=== PATIENT | female | born 1940 | race Hispanic/Latino ===

== ENCOUNTER 2016-09-24 15:38 | Inpatient (IN) | payer MEDICARE ==
--- NOTE | 2016-09-24 15:54 | Emergency Department Report ---
Chief Complaint: Extremity Injury, Lower Stated Complaint: RT FOOT PAIN Time Seen by Provider: 09/24/16 15:48 - HPI History of Present Illness: 76-year-old female presents emergency department via EMS for evaluation of right foot pain and swelling. Patient states that she had a mechanical fall 3 days ago. She states her right foot was caught either on her chair or her walker and she fell backwards onto the floor hitting her head. There was no loss of consciousness. Patient was seen that night at [facility]. She states she underwent CT of the head and x-rays of her foot which were reportedly negative. She has been taking Tylenol No. 3 for pain, and states this is helping her pain. Patient's daughter wanted her to come to the emergency room today because of persistent and worsening swelling of the right foot. - Exam Vital Signs: Vital Signs 09/24/16 15:42 Temperature 97.1 F L Pulse Rate 92 H Respiratory 16 Rate Blood Pressure 123/73 O2 Sat by Pulse 99 Oximetry Physical Exam: Right foot: mild edema. Ecchymosis noted over the base of the toes on the dorsal aspect of the foot. Tenderness to palpation over the dorsum of the foot. Intact neurovascularly. MSE screening note: Focused history and physical exam performed. Due to findings the following was ordered: CBC, PT/INR, PTT, R foot x-ray ED Disposition for MSE Condition: Stable
--- NOTE | 2016-09-24 16:49 | XRay Report ---
Right foot 3 views. History: Trauma with pain. Findings: There are nondisplaced fractures of the proximal shafts of the third and fourth metatarsals with no evidence of associated dislocation. An old fracture deformity is seen involving the distal shaft of the fourth metatarsal. Bony mineralization is normal for age. Impression: Fractures of the proximal third and fourth metatarsal bones.
[2016-09-24 17:16] LABS: Hematocrit 44.2 % (30.3-42.9); Hemoglobin 14.3 gm/dl (10.1-14.3); Mean Corpuscular HGB Conc 32 % (30-34); Mean Corpuscular Hemoglobin 30 pg (28-32); Mean Corpuscular Volume 92 fl (79-97); Platelet Count 186 K/mm3 (140-440); Red Blood Count 4.81 M/mm3 (3.65-5.03); Red Cell Distribution Width 15.3 % (13.2-15.2); White Blood Count 14.9 K/mm3 (4.5-11.0)
[2016-09-24 17:47] LABS: INR 1.29 (0.87-1.13)
[2016-09-24 17:48] LABS: Partial Thromboplastin Time 29.5 Sec. (24.2-36.6)
[2016-09-24 18:21] LABS: Basophils % (Manual) 0 % (0.0-1.8); Blastocytes % (Manual) 0 %
[2016-09-24 18:22] LABS: Diff Status Complete; Eosinophils % (Manual) 0 % (0.0-4.3); Poikilocytosis Few
[2016-09-24] MEDS ORDERED: NORCO 5/325 ONE (18:50)
[2016-09-24] MEDS ORDERED: NORCO 5/325 PO ONE (18:58)
[2016-09-24] MEDS ORDERED: ATROVENT IH ONE (20:08)
[2016-09-24] MEDS ORDERED: PROVENTIL IH ONE (20:08)
--- NOTE | 2016-09-24 20:09 | Emergency Department Report ---
ED General Adult HPI - General Chief complaint: Extremity Injury, Lower Stated complaint: RT FOOT PAIN Time Seen by Provider: 09/24/16 15:48 Source: patient, EMS (ems notes not available at time of chart dictation), RN notes reviewed Mode of arrival: Stretcher Limitations: Physical Limitation - History of Present Illness Initial comments: This is a 76-year-old female. She is previously unknown to me. Primary care Dr.: Dr. Brijesh Qureshi. Cardiology: Dr. Little Pulmonary: Dr. Alejo Past medical history: CHF, diabetes, COPD, hypertension (not on home oxygen, does not recall ejection fraction.) The patient is accompanied by family. The patient presents to the ER after mechanical fall over the weekend. Patient reports that she fell and hit her head, and broke the toes in her right lower extremity. She reports that since the fall, she's been having pain in her foot , difficulty walking. Family reports that the patient typically requires assistance with activities of daily living, and has required increased assistance. The patient complains of a mixture of pain and weakness in her lower extremity, just precluding her from participating in her activities of daily living. She also complains of generalized weakness, and shortness of breath. There is no chest pain. There is no saddle anesthesia. There is no urinary or fecal incontinence. There is no urinary retention. Symptoms are constant. They worsen with physical exertion. It decreased with rest. -: Gradual Location: right, lower extremity Severity scale (0 -10): 8 Quality: aching Consistency: constant Improves with: rest Worsens with: movement Associated Symptoms: cough, loss of appetite, nausea/vomiting, shortness of breath, weakness - Related Data Home Medications Medication Instructions Recorded Confirmed Last Taken Clopidogrel Bisulfate [Plavix] 75 mg PO DAILY 09/24/16 09/24/16 Unknown Allergies Allergy/AdvReac Type Severity Reaction Status Date / Time amoxicillin trihydrate Allergy Unknown Verified 09/24/16 15:42 [From Augmentin] meperidine HCl [From Demerol] Allergy Unknown Verified 09/24/16 15:42 potassium clavulanate Allergy Unknown Verified 09/24/16 15:42 [From Augmentin] Sulfa (Sulfonamide Allergy Unknown Verified 09/24/16 15:42 Antibiotics) ED Review of Systems ROS: Stated complaint: RT FOOT PAIN Other details as noted in HPI Constitutional: malaise, weakness Eyes: denies: vision change ENT: denies: epistaxis Respiratory: shortness of breath Cardiovascular: dyspnea on exertion Gastrointestinal: denies: nausea Genitourinary: as per HPI Musculoskeletal: arthralgia, myalgia Skin: denies: lesions Neurological: weakness Psychiatric: anxiety ED Past Medical Hx - Past Medical History Previous Medical History?: Yes Hx Hypertension: Yes Hx Congestive Heart Failure: Yes Hx COPD: Yes Additional medical history: sleep apnea - Surgical History Past Surgical History?: No - Social History Smoking Status: Never Smoker Substance Use Type: None - Medications Home Medications: Home Medications Medication Instructions Recorded Confirmed Last Taken Type Clopidogrel Bisulfate [Plavix] 75 mg PO DAILY 09/24/16 09/24/16 Unknown History ED Physical Exam - General Limitations: Physical Limitation General appearance: alert, in no apparent distress - Head Head exam: Present: atraumatic, normocephalic - Eye Eye exam: Present: normal appearance, EOMI. Absent: nystagmus - ENT ENT exam: Present: normal exam, normal orophraynx, mucous membranes moist, normal external ear exam - Neck Neck exam: Present: normal inspection, full ROM. Absent: tenderness, meningismus - Respiratory Respiratory exam: Present: respiratory distress, wheezes, rales, rhonchi - Cardiovascular Cardiovascular Exam: Present: regular rate, normal rhythm, normal heart sounds. Absent: bradycardia, tachycardia, irregular rhythm, systolic murmur, diastolic murmur, rubs, gallop - GI/Abdominal GI/Abdominal exam: Present: soft, normal bowel sounds. Absent: distended, tenderness, guarding, rebound, rigid, pulsatile mass - Extremities Exam Extremities exam: Present: normal inspection, full ROM, tenderness (there is tenderness to the dorsal aspect of the right foot. The pelvis is stable. There is no long bony tenderness. Patient is able to turn herself around, and strength is intact in the bilateral hip flexors and extensors, bilateral knee extensors and flexors, and bilateral dorsi and plantar flexion.), normal capillary refill. Absent: pedal edema, joint swelling, calf tenderness - Back Exam Back exam: Present: normal inspection, full ROM, paraspinal tenderness - Neurological Exam Neurological exam: Present: alert, oriented X3, other (Extraocular movements intact. Tongue midline. No facial droop. Facial sensation intact to light touch in the V1, V2, V3 distribution bilaterally. 5 and 5 strength in 4 extremities.. Sensation is intact to light touch in 4 extremities.). Absent: normal gait (patient unable to walk secondary to foot pain), motor sensory deficit (sensation is intact to light touch, pinprick and proprioception in 4 extremities) - Psychiatric Psychiatric exam: Present: anxious - Skin Skin exam: Present: warm, dry, intact, normal color. Absent: rash ED Course Vital Signs 09/24/16 09/24/16 09/24/16 15:42 18:05 18:06 Temperature 97.1 F L Pulse Rate 92 H 72 72 Pulse Rate [ Anterior Bilateral Throughout] Respiratory 16 16 17 Rate Respiratory Rate [Anterior Bilateral Throughout] Blood Pressure 123/73 120/66 Blood Pressure [Right] O2 Sat by Pulse 99 91 90 Oximetry 09/24/16 09/24/16 09/24/16 19:00 19:42 19:44 Temperature Pulse Rate 69 75 Pulse Rate [ Anterior Bilateral Throughout] Respiratory 17 16 13 Rate Respiratory Rate [Anterior Bilateral Throughout] Blood Pressure 141/72 141/72 Blood Pressure [Right] O2 Sat by Pulse 96 98 98 Oximetry 09/24/16 09/24/16 09/24/16 19:46 19:48 19:50 Temperature Pulse Rate 71 69 68 Pulse Rate [ Anterior Bilateral Throughout] Respiratory 22 14 14 Rate Respiratory Rate [Anterior Bilateral Throughout] Blood Pressure 141/72 141/72 141/72 Blood Pressure [Right] O2 Sat by Pulse 98 99 99 Oximetry 09/24/16 09/24/16 09/24/16 19:52 19:54 19:56 Temperature Pulse Rate 68 76 81 Pulse Rate [ Anterior Bilateral Throughout] Respiratory 16 12 16 Rate Respiratory Rate [Anterior Bilateral Throughout] Blood Pressure 141/72 141/72 141/72 Blood Pressure [Right] O2 Sat by Pulse 100 95 96 Oximetry 09/24/16 09/24/16 09/24/16 19:58 20:00 20:02 Temperature Pulse Rate Pulse Rate [ Anterior Bilateral Throughout] Respiratory Rate Respiratory Rate [Anterior Bilateral Throughout] Blood Pressure 141/72 141/72 141/72 Blood Pressure [Right] O2 Sat by Pulse 94 90 95 Oximetry 09/24/16 09/24/16 09/24/16 20:04 20:06 20:08 Temperature Pulse Rate Pulse Rate [ Anterior Bilateral Throughout] Respiratory Rate Respiratory Rate [Anterior Bilateral Throughout] Blood Pressure 141/72 141/72 141/72 Blood Pressure [Right] O2 Sat by Pulse 90 91 89 Oximetry 09/24/16 09/24/16 09/24/16 20:10 20:11 20:12 Temperature Pulse Rate 73 76 Pulse Rate [ Anterior Bilateral Throughout] Respiratory 18 24 Rate Respiratory Rate [Anterior Bilateral Throughout] Blood Pressure 141/72 131/82 131/82 Blood Pressure [Right] O2 Sat by Pulse 95 94 93 Oximetry 09/24/16 09/24/16 09/24/16 20:14 20:16 20:18 Temperature Pulse Rate 74 77 76 Pulse Rate [ Anterior Bilateral Throughout] Respiratory 18 18 19 Rate Respiratory Rate [Anterior Bilateral Throughout] Blood Pressure 131/82 131/82 131/82 Blood Pressure [Right] O2 Sat by Pulse 91 92 94 Oximetry 09/24/16 09/24/16 09/24/16 20:20 20:22 20:24 Temperature Pulse Rate 73 75 80 Pulse Rate [ Anterior Bilateral Throughout] Respiratory 22 14 15 Rate Respiratory Rate [Anterior Bilateral Throughout] Blood Pressure 131/82 131/82 131/82 Blood Pressure [Right] O2 Sat by Pulse 92 87 94 Oximetry 09/24/16 09/24/16 09/24/16 20:26 20:28 20:30 Temperature Pulse Rate 74 69 76 Pulse Rate [ Anterior Bilateral Throughout] Respiratory 17 16 14 Rate Respiratory Rate [Anterior Bilateral Throughout] Blood Pressure 131/82 131/82 131/82 Blood Pressure [Right] O2 Sat by Pulse 92 94 91 Oximetry 09/24/16 09/24/16 09/24/16 20:32 20:34 20:36 Temperature Pulse Rate 71 72 77 Pulse Rate [ Anterior Bilateral Throughout] Respiratory 12 15 20 Rate Respiratory Rate [Anterior Bilateral Throughout] Blood Pressure 131/82 131/82 131/82 Blood Pressure [Right] O2 Sat by Pulse 91 91 87 Oximetry 09/24/16 09/24/16 09/24/16 20:38 20:40 20:42 Temperature Pulse Rate 78 77 75 Pulse Rate [ Anterior Bilateral Throughout] Respiratory 12 13 14 Rate Respiratory Rate [Anterior Bilateral Throughout] Blood Pressure 131/82 131/82 131/82 Blood Pressure [Right] O2 Sat by Pulse 91 91 90 Oximetry 09/24/16 09/24/16 09/24/16 20:44 20:45 20:46 Temperature Pulse Rate 69 77 Pulse Rate [ 77 Anterior Bilateral Throughout] Respiratory 21 15 Rate Respiratory 15 Rate [Anterior Bilateral Throughout] Blood Pressure 131/82 131/82 Blood Pressure [Right] O2 Sat by Pulse 90 100 Oximetry 09/24/16 09/24/16 09/24/16 20:48 20:50 20:52 Temperature Pulse Rate 74 76 74 Pulse Rate [ Anterior Bilateral Throughout] Respiratory 20 21 19 Rate Respiratory Rate [Anterior Bilateral Throughout] Blood Pressure 131/82 131/82 131/82 Blood Pressure [Right] O2 Sat by Pulse 100 98 99 Oximetry 09/24/16 09/24/16 09/24/16 20:54 20:56 20:58 Temperature Pulse Rate 75 71 72 Pulse Rate [ 84 Anterior Bilateral Throughout] Respiratory 19 17 16 Rate Respiratory 16 Rate [Anterior Bilateral Throughout] Blood Pressure 131/82 131/82 131/82 Blood Pressure [Right] O2 Sat by Pulse 100 100 100 Oximetry 09/24/16 09/24/16 09/24/16 21:00 21:02 21:04 Temperature Pulse Rate 74 74 74 Pulse Rate [ Anterior Bilateral Throughout] Respiratory 20 13 15 Rate Respiratory Rate [Anterior Bilateral Throughout] Blood Pressure 134/70 134/70 134/70 Blood Pressure [Right] O2 Sat by Pulse 99 99 100 Oximetry 09/24/16 09/24/16 09/24/16 21:06 21:08 21:10 Temperature Pulse Rate 77 82 81 Pulse Rate [ Anterior Bilateral Throughout] Respiratory 22 22 19 Rate Respiratory Rate [Anterior Bilateral Throughout] Blood Pressure 134/70 134/70 134/70 Blood Pressure [Right] O2 Sat by Pulse 99 100 99 Oximetry 09/24/16 09/24/16 09/24/16 21:12 21:14 21:16 Temperature Pulse Rate 76 81 74 Pulse Rate [ Anterior Bilateral Throughout] Respiratory 21 23 24 Rate Respiratory Rate [Anterior Bilateral Throughout] Blood Pressure 134/70 134/70 134/70 Blood Pressure [Right] O2 Sat by Pulse 99 100 99 Oximetry 09/24/16 09/24/16 09/24/16 21:18 21:21 23:42 Temperature 99.4 F Pulse Rate 80 74 Pulse Rate [ Anterior Bilateral Throughout] Respiratory 17 15 Rate Respiratory Rate [Anterior Bilateral Throughout] Blood Pressure 134/70 108/68 Blood Pressure [Right] O2 Sat by Pulse 100 97 Oximetry 09/24/16 09/24/16 09/24/16 23:44 23:46 23:48 Temperature Pulse Rate 75 86 81 Pulse Rate [ Anterior Bilateral Throughout] Respiratory 10 L 12 10 L Rate Respiratory Rate [Anterior Bilateral Throughout] Blood Pressure 108/68 108/68 108/68 Blood Pressure [Right] O2 Sat by Pulse 96 91 96 Oximetry 09/24/16 09/24/16 09/24/16 23:50 23:52 23:54 Temperature Pulse Rate 87 80 73 Pulse Rate [ Anterior Bilateral Throughout] Respiratory 10 L 11 L 14 Rate Respiratory Rate [Anterior Bilateral Throughout] Blood Pressure 108/68 108/68 108/68 Blood Pressure [Right] O2 Sat by Pulse 98 95 98 Oximetry 09/24/16 09/24/16 09/25/16 23:56 23:58 00:00 Temperature Pulse Rate 77 78 74 Pulse Rate [ Anterior Bilateral Throughout] Respiratory 15 22 15 Rate Respiratory Rate [Anterior Bilateral Throughout] Blood Pressure 108/68 108/68 108/68 Blood Pressure [Right] O2 Sat by Pulse 97 99 98 Oximetry 09/25/16 09/25/16 09/25/16 00:01 00:02 00:04 Temperature Pulse Rate 79 80 74 Pulse Rate [ Anterior Bilateral Throughout] Respiratory 15 17 17 Rate Respiratory Rate [Anterior Bilateral Throughout] Blood Pressure 95/71 95/71 95/71 Blood Pressure [Right] O2 Sat by Pulse 99 100 98 Oximetry 09/25/16 09/25/16 09/25/16 00:06 00:08 00:10 Temperature Pulse Rate 79 83 75 Pulse Rate [ Anterior Bilateral Throughout] Respiratory 18 17 12 Rate Respiratory Rate [Anterior Bilateral Throughout] Blood Pressure 95/71 95/71 95/71 Blood Pressure [Right] O2 Sat by Pulse 99 97 96 Oximetry 09/25/16 09/25/16 09/25/16 00:12 00:14 00:16 Temperature Pulse Rate 76 70 75 Pulse Rate [ Anterior Bilateral Throughout] Respiratory 15 15 16 Rate Respiratory Rate [Anterior Bilateral Throughout] Blood Pressure 95/71 95/71 95/71 Blood Pressure [Right] O2 Sat by Pulse 95 94 96 Oximetry 09/25/16 09/25/16 09/25/16 00:18 00:20 00:22 Temperature Pulse Rate 70 82 71 Pulse Rate [ Anterior Bilateral Throughout] Respiratory 15 14 19 Rate Respiratory Rate [Anterior Bilateral Throughout] Blood Pressure 95/71 95/71 95/71 Blood Pressure [Right] O2 Sat by Pulse 97 94 97 Oximetry 09/25/16 09/25/16 09/25/16 00:24 00:26 00:28 Temperature Pulse Rate 75 74 74 Pulse Rate [ Anterior Bilateral Throughout] Respiratory 16 12 17 Rate Respiratory Rate [Anterior Bilateral Throughout] Blood Pressure 95/71 95/71 95/71 Blood Pressure [Right] O2 Sat by Pulse 92 97 96 Oximetry 09/25/16 09/25/16 09/25/16 00:30 00:32 00:34 Temperature Pulse Rate 78 73 79 Pulse Rate [ Anterior Bilateral Throughout] Respiratory 13 19 18 Rate Respiratory Rate [Anterior Bilateral Throughout] Blood Pressure 95/71 95/71 95/71 Blood Pressure [Right] O2 Sat by Pulse 96 97 99 Oximetry 09/25/16 09/25/16 09/25/16 00:36 00:38 00:40 Temperature Pulse Rate 71 68 79 Pulse Rate [ Anterior Bilateral Throughout] Respiratory 16 18 13 Rate Respiratory Rate [Anterior Bilateral Throughout] Blood Pressure 95/71 95/71 95/71 Blood Pressure [Right] O2 Sat by Pulse 98 96 96 Oximetry 09/25/16 09/25/16 09/25/16 00:42 00:44 00:46 Temperature Pulse Rate 74 70 73 Pulse Rate [ Anterior Bilateral Throughout] Respiratory 15 13 12 Rate Respiratory Rate [Anterior Bilateral Throughout] Blood Pressure 95/71 95/71 95/71 Blood Pressure [Right] O2 Sat by Pulse 98 97 97 Oximetry 09/25/16 09/25/16 09/25/16 00:48 00:50 00:52 Temperature Pulse Rate 76 76 74 Pulse Rate [ Anterior Bilateral Throughout] Respiratory 16 15 17 Rate Respiratory Rate [Anterior Bilateral Throughout] Blood Pressure 95/71 95/71 95/71 Blood Pressure [Right] O2 Sat by Pulse 97 97 96 Oximetry 09/25/16 09/25/16 09/25/16 00:54 00:56 00:58 Temperature Pulse Rate 64 79 74 Pulse Rate [ Anterior Bilateral Throughout] Respiratory 16 16 17 Rate Respiratory Rate [Anterior Bilateral Throughout] Blood Pressure 95/71 95/71 95/71 Blood Pressure [Right] O2 Sat by Pulse 96 96 96 Oximetry 09/25/16 09/25/16 09/25/16 01:00 01:02 01:04 Temperature Pulse Rate 76 80 70 Pulse Rate [ Anterior Bilateral Throughout] Respiratory 12 15 17 Rate Respiratory Rate [Anterior Bilateral Throughout] Blood Pressure 112/73 112/73 112/73 Blood Pressure [Right] O2 Sat by Pulse 97 98 97 Oximetry 09/25/16 09/25/16 09/25/16 01:06 01:08 01:10 Temperature Pulse Rate 80 81 73 Pulse Rate [ Anterior Bilateral Throughout] Respiratory 14 16 16 Rate Respiratory Rate [Anterior Bilateral Throughout] Blood Pressure 112/73 112/73 112/73 Blood Pressure [Right] O2 Sat by Pulse 97 96 Oximetry 09/25/16 09/25/16 09/25/16 01:12 01:14 01:16 Temperature Pulse Rate 81 75 79 Pulse Rate [ Anterior Bilateral Throughout] Respiratory 17 13 15 Rate Respiratory Rate [Anterior Bilateral Throughout] Blood Pressure 112/73 112/73 112/73 Blood Pressure [Right] O2 Sat by Pulse 96 97 97 Oximetry 09/25/16 09/25/16 09/25/16 01:18 01:20 01:22 Temperature Pulse Rate 71 79 76 Pulse Rate [ Anterior Bilateral Throughout] Respiratory 15 13 17 Rate Respiratory Rate [Anterior Bilateral Throughout] Blood Pressure 112/73 112/73 112/73 Blood Pressure [Right] O2 Sat by Pulse 96 97 97 Oximetry 09/25/16 09/25/16 09/25/16 01:24 01:26 01:28 Temperature Pulse Rate 78 70 74 Pulse Rate [ Anterior Bilateral Throughout] Respiratory 15 18 20 Rate Respiratory Rate [Anterior Bilateral Throughout] Blood Pressure 112/73 112/73 112/73 Blood Pressure [Right] O2 Sat by Pulse 95 95 97 Oximetry 09/25/16 09/25/16 09/25/16 01:30 01:32 01:34 Temperature Pulse Rate 71 81 81 Pulse Rate [ Anterior Bilateral Throughout] Respiratory 18 18 16 Rate Respiratory Rate [Anterior Bilateral Throughout] Blood Pressure 112/73 112/73 112/73 Blood Pressure [Right] O2 Sat by Pulse 96 96 95 Oximetry 09/25/16 09/25/16 09/25/16 01:36 01:38 01:40 Temperature Pulse Rate 75 69 75 Pulse Rate [ Anterior Bilateral Throughout] Respiratory 17 20 16 Rate Respiratory Rate [Anterior Bilateral Throughout] Blood Pressure 112/73 112/73 112/73 Blood Pressure [Right] O2 Sat by Pulse 96 96 96 Oximetry 09/25/16 09/25/16 09/25/16 01:42 01:44 01:46 Temperature Pulse Rate 77 72 Pulse Rate [ Anterior Bilateral Throughout] Respiratory 22 17 Rate Respiratory Rate [Anterior Bilateral Throughout] Blood Pressure 112/73 112/73 112/73 Blood Pressure [Right] O2 Sat by Pulse 96 97 96 Oximetry 09/25/16 09/25/16 09/25/16 01:48 01:50 01:52 Temperature Pulse Rate Pulse Rate [ Anterior Bilateral Throughout] Respiratory Rate Respiratory Rate [Anterior Bilateral Throughout] Blood Pressure 112/73 112/73 112/73 Blood Pressure [Right] O2 Sat by Pulse 95 96 96 Oximetry 09/25/16 09/25/16 09/25/16 01:54 01:56 01:58 Temperature Pulse Rate Pulse Rate [ Anterior Bilateral Throughout] Respiratory Rate Respiratory Rate [Anterior Bilateral Throughout] Blood Pressure 112/73 112/73 112/73 Blood Pressure [Right] O2 Sat by Pulse 95 95 94 Oximetry 09/25/16 09/25/16 09/25/16 02:00 02:38 02:40 Temperature Pulse Rate 70 77 71 Pulse Rate [ Anterior Bilateral Throughout] Respiratory 21 15 22 Rate Respiratory Rate [Anterior Bilateral Throughout] Blood Pressure 117/73 117/73 117/73 Blood Pressure [Right] O2 Sat by Pulse 95 97 96 Oximetry 09/25/16 09/25/16 09/25/16 02:42 02:44 02:46 Temperature Pulse Rate 75 68 78 Pulse Rate [ Anterior Bilateral Throughout] Respiratory 16 12 14 Rate Respiratory Rate [Anterior Bilateral Throughout] Blood Pressure 117/73 117/73 117/73 Blood Pressure [Right] O2 Sat by Pulse 97 97 97 Oximetry 09/25/16 09/25/16 09/25/16 02:48 02:50 02:52 Temperature Pulse Rate 76 76 73 Pulse Rate [ Anterior Bilateral Throughout] Respiratory 16 19 14 Rate Respiratory Rate [Anterior Bilateral Throughout] Blood Pressure 117/73 117/73 117/73 Blood Pressure [Right] O2 Sat by Pulse 98 97 98 Oximetry 09/25/16 09/25/16 09/25/16 02:54 02:56 02:58 Temperature Pulse Rate 71 77 73 Pulse Rate [ Anterior Bilateral Throughout] Respiratory 15 16 14 Rate Respiratory Rate [Anterior Bilateral Throughout] Blood Pressure 117/73 117/73 117/73 Blood Pressure [Right] O2 Sat by Pulse 97 97 97 Oximetry 09/25/16 09/25/16 09/25/16 03:00 03:01 03:02 Temperature Pulse Rate 73 76 77 Pulse Rate [ Anterior Bilateral Throughout] Respiratory 12 16 14 Rate Respiratory Rate [Anterior Bilateral Throughout] Blood Pressure 117/73 116/72 116/72 Blood Pressure [Right] O2 Sat by Pulse 97 95 97 Oximetry 09/25/16 09/25/16 09/25/16 03:04 03:06 03:08 Temperature Pulse Rate 67 64 72 Pulse Rate [ Anterior Bilateral Throughout] Respiratory 15 15 15 Rate Respiratory Rate [Anterior Bilateral Throughout] Blood Pressure 116/72 116/72 116/72 Blood Pressure [Right] O2 Sat by Pulse 96 96 97 Oximetry 09/25/16 09/25/16 09/25/16 03:10 03:12 03:14 Temperature Pulse Rate 69 79 75 Pulse Rate [ Anterior Bilateral Throughout] Respiratory 17 16 21 Rate Respiratory Rate [Anterior Bilateral Throughout] Blood Pressure 116/72 116/72 116/72 Blood Pressure [Right] O2 Sat by Pulse 97 97 97 Oximetry 09/25/16 09/25/16 09/25/16 03:16 03:18 03:20 Temperature Pulse Rate 72 80 73 Pulse Rate [ Anterior Bilateral Throughout] Respiratory 15 15 17 Rate Respiratory Rate [Anterior Bilateral Throughout] Blood Pressure 116/72 116/72 116/72 Blood Pressure [Right] O2 Sat by Pulse 97 97 97 Oximetry 09/25/16 09/25/16 09/25/16 03:22 03:24 03:26 Temperature Pulse Rate 75 73 76 Pulse Rate [ Anterior Bilateral Throughout] Respiratory 15 17 18 Rate Respiratory Rate [Anterior Bilateral Throughout] Blood Pressure 116/72 116/72 116/72 Blood Pressure [Right] O2 Sat by Pulse 97 97 96 Oximetry 09/25/16 09/25/16 09/25/16 03:28 03:30 03:32 Temperature Pulse Rate 77 76 79 Pulse Rate [ Anterior Bilateral Throughout] Respiratory 19 18 16 Rate Respiratory Rate [Anterior Bilateral Throughout] Blood Pressure 116/72 116/72 116/72 Blood Pressure [Right] O2 Sat by Pulse 96 97 97 Oximetry 09/25/16 09/25/16 09/25/16 03:34 03:36 03:38 Temperature Pulse Rate 68 73 73 Pulse Rate [ Anterior Bilateral Throughout] Respiratory 16 18 17 Rate Respiratory Rate [Anterior Bilateral Throughout] Blood Pressure 116/72 116/72 116/72 Blood Pressure [Right] O2 Sat by Pulse 97 96 97 Oximetry 09/25/16 09/25/16 09/25/16 03:40 03:42 03:44 Temperature Pulse Rate 75 74 75 Pulse Rate [ Anterior Bilateral Throughout] Respiratory 16 15 15 Rate Respiratory Rate [Anterior Bilateral Throughout] Blood Pressure 116/72 116/72 116/72 Blood Pressure [Right] O2 Sat by Pulse 97 97 97 Oximetry 09/25/16 09/25/16 09/25/16 03:46 03:48 03:50 Temperature Pulse Rate 74 71 69 Pulse Rate [ Anterior Bilateral Throughout] Respiratory 13 16 12 Rate Respiratory Rate [Anterior Bilateral Throughout] Blood Pressure 116/72 116/72 116/72 Blood Pressure [Right] O2 Sat by Pulse 97 97 97 Oximetry 09/25/16 09/25/16 09/25/16 03:52 03:54 03:56 Temperature Pulse Rate 72 66 77 Pulse Rate [ Anterior Bilateral Throughout] Respiratory 15 14 16 Rate Respiratory Rate [Anterior Bilateral Throughout] Blood Pressure 116/72 116/72 116/72 Blood Pressure [Right] O2 Sat by Pulse 97 96 98 Oximetry 09/25/16 09/25/16 09/25/16 03:58 04:00 04:02 Temperature Pulse Rate 77 72 69 Pulse Rate [ Anterior Bilateral Throughout] Respiratory 13 18 15 Rate Respiratory Rate [Anterior Bilateral Throughout] Blood Pressure 116/72 123/71 123/71 Blood Pressure [Right] O2 Sat by Pulse 97 96 96 Oximetry 09/25/16 09/25/16 09/25/16 04:04 04:06 04:08 Temperature Pulse Rate 69 80 75 Pulse Rate [ Anterior Bilateral Throughout] Respiratory 14 15 14 Rate Respiratory Rate [Anterior Bilateral Throughout] Blood Pressure 123/71 123/71 123/71 Blood Pressure [Right] O2 Sat by Pulse 98 97 98 Oximetry 09/25/16 09/25/16 09/25/16 04:10 04:12 04:14 Temperature Pulse Rate 68 72 79 Pulse Rate [ Anterior Bilateral Throughout] Respiratory 16 13 8 L Rate Respiratory Rate [Anterior Bilateral Throughout] Blood Pressure 123/71 123/71 123/71 Blood Pressure [Right] O2 Sat by Pulse 98 97 97 Oximetry 09/25/16 04:21 Temperature Pulse Rate 79 Pulse Rate [ Anterior Bilateral Throughout] Respiratory 12 Rate Respiratory Rate [Anterior Bilateral Throughout] Blood Pressure Blood Pressure 123/71 [Right] O2 Sat by Pulse 97 Oximetry - Reevaluation(s) Reevaluation #1: 09/24/16 21:15 . Differential diagnosis: Subacute foot fracture, debility, deconditioning, COPD exacerbation, CHF exacerbation, multifactorial shortness of breath, pneumonia, debilitating Assessment and plan: 76-year-old female status post mechanical fall over the weekend, with debility, decreased ability to perform her activities of daily living. She complains of shortness of breath, is found to be hypoxic on room air, and an arterial blood gas on room air done a straight hypoxemic respiratory failure. She will be given albuterol, Atrovent, steroids and magnesium. A CT scan of the brain, cervical spine and lumbar spine are pending. Plain films of the pelvis were negative for fracture and dislocation. Plain films of the foot confirmed known tarsal fractures. Patient has appropriate distal strength, sensation, proprioception, therefore I think epidural compression syndrome is unlikely. She will require admission once her laboratory studies and diagnostics have returned. Reevaluation #2: 09/24/16 21:19 The patient's right foot x-ray demonstrates nondisplaced fractures of the third and fourth metatarsals, this is a nonoperative lesion, and can be treated with nonweightbearing status, and a hard sole shoe. Reevaluation #3: 09/24/16 23:29 CT scans are reviewed and appreciated. Congestive heart failure is suggested on the CT scan. Lasix was ordered. The CT scan of the lumbar spine demonstrates a possible disc protrusion on the left side. Clinically, the patient's symptoms on the right side, and her physical examination history did not corroborates cord compression. Inpatient team can follow this up. Case is discussed with the Hospital physician, Dr. Hager, who accepts the patient to his service. ED Medical Decision Making - Lab Data Result diagrams: 09/24/16 16:52 09/24/16 21:28 Vital Signs 09/24/16 09/24/16 09/24/16 15:42 18:05 18:06 Temperature 97.1 F L Pulse Rate 92 H 72 72 Respiratory 16 16 17 Rate Blood Pressure 123/73 120/66 O2 Sat by Pulse 99 91 90 Oximetry 09/24/16 19:00 Temperature Pulse Rate Respiratory 17 Rate Blood Pressure O2 Sat by Pulse 96 Oximetry Lab Results 09/24/16 09/24/16 09/24/16 Range/Units 16:52 16:52 20:18 WBC 14.9 H (4.5-11.0) K/mm3 RBC 4.81 (3.65-5.03) M/mm3 Hgb 14.3 (10.1-14.3) gm/dl Hct 44.2 H (30.3-42.9) % MCV 92 (79-97) fl MCH 30 (28-32) pg MCHC 32 (30-34) % RDW 15.3 H (13.2-15.2) % Plt Count 186 (140-440) K/mm3 [place] % (Auto) Mortar Mixer Add Manual Diff Complete Total Counted 100 Seg Neuts % (Manual) 73.0 H (40.0-70.0) % Band Neutrophils % 0 % Lymphocytes % (Manual) 14.0 (13.4-35.0) % Reactive Lymphs % (Man) 0 % Monocytes % (Manual) 13.0 H (0.0-7.3) % Eosinophils % (Manual) 0 (0.0-4.3) % Basophils % (Manual) 0 (0.0-1.8) % Metamyelocytes % 0 % Myelocytes % 0 % Promyelocytes % 0 % Blast Cells % 0 % Nucleated RBC % Not Reportable Seg Neutrophils # Man 10.9 H (1.8-7.7) K/mm3 Band Neutrophils # 0.0 K/mm3 Lymphocytes # (Manual) 2.1 (1.2-5.4) K/mm3 Abs React Lymphs (Man) 0.0 K/mm3 Monocytes # (Manual) 1.9 H (0.0-0.8) K/mm3 Eosinophils # (Manual) 0.0 (0.0-0.4) K/mm3 Basophils # (Manual) 0.0 (0.0-0.1) K/mm3 Metamyelocytes # 0.0 K/mm3 Myelocytes # 0.0 K/mm3 Promyelocytes # 0.0 K/mm3 Blast Cells # 0.0 K/mm3 WBC Morphology Not Reportable Hypersegmented Neuts Not Reportable Hyposegmented Neuts Not Reportable Hypogranular Neuts Not Reportable Smudge Cells Not Reportable Toxic Granulation Not Reportable Toxic Vacuolation Not Reportable Dohle Bodies Not Reportable Pelger-Huet Anomaly Not Reportable Loi Rods Not Reportable Platelet Estimate Appears normal Clumped Platelets Not Reportable Plt Clumps, EDTA Not Reportable Large Platelets Not Reportable Giant Platelets Not Reportable Platelet Satelliting Not Reportable Plt Morphology Comment Not Reportable RBC Morphology Not Reportable Dimorphic RBCs Not Reportable Polychromasia Not Reportable Hypochromasia Not Reportable Poikilocytosis Few Anisocytosis Not Reportable Microcytosis Not Reportable Macrocytosis Not Reportable Spherocytes Not Reportable Pappenheimer Bodies Not Reportable Sickle Cells Not Reportable Target Cells Not Reportable Tear Drop Cells Not Reportable Ovalocytes Not Reportable Helmet Cells Not Reportable Lindsay-Wilson[place] Bodies Not Reportable [place] Rings Not Reportable [place] Cells Not Reportable Bite Cells Not Reportable Crenated Cell Not Reportable Elliptocytes Not Reportable Acanthocytes (Spur) Not Reportable Rouleaux Not Reportable Hemoglobin C Crystals Not Reportable Schistocytes Not Reportable Malaria parasites Not Reportable Malik Bodies Not Reportable Hem Pathologist Commnt No PT 16.0 H (12.2-14.9) Sec. INR 1.29 H (0.87-1.13) APTT 29.5 (24.2-36.6) Sec. POC ABG pH (7.35-7.45) POC ABG pCO2 (35-45) POC ABG pO2 (80-105) POC ABG HCO3 POC ABG Total CO2 POC ABG O2 Sat POC ABG Base Excess FiO2 % POC Glucose 84 (70-105) 09/24/16 Range/Units 20:42 WBC (4.5-11.0) K/mm3 RBC (3.65-5.03) M/mm3 Hgb (10.1-14.3) gm/dl Hct (30.3-42.9) % MCV (79-97) fl MCH (28-32) pg MCHC (30-34) % RDW (13.2-15.2) % Plt Count (140-440) K/mm3 [place] % (Auto) Add Manual Diff Total Counted Seg Neuts % (Manual) (40.0-70.0) % Band Neutrophils % % Lymphocytes % (Manual) (13.4-35.0) % Reactive Lymphs % (Man) % Monocytes % (Manual) (0.0-7.3) % Eosinophils % (Manual) (0.0-4.3) % Basophils % (Manual) (0.0-1.8) % Metamyelocytes % % Myelocytes % % Promyelocytes % % Blast Cells % % Nucleated RBC % Seg Neutrophils # Man (1.8-7.7) K/mm3 Band Neutrophils # K/mm3 Lymphocytes # (Manual) (1.2-5.4) K/mm3 Abs React Lymphs (Man) K/mm3 Monocytes # (Manual) (0.0-0.8) K/mm3 Eosinophils # (Manual) (0.0-0.4) K/mm3 Basophils # (Manual) (0.0-0.1) K/mm3 Metamyelocytes # K/mm3 Myelocytes # K/mm3 Promyelocytes # K/mm3 Blast Cells # K/mm3 WBC Morphology Hypersegmented Neuts Hyposegmented Neuts Hypogranular Neuts Smudge Cells Toxic Granulation Toxic Vacuolation Dohle Bodies Pelger-Huet Anomaly Loi Rods Platelet Estimate Clumped Platelets Plt Clumps, EDTA Large Platelets Giant Platelets Platelet Satelliting Plt Morphology Comment RBC Morphology Dimorphic RBCs Polychromasia Hypochromasia Poikilocytosis Anisocytosis Microcytosis Macrocytosis Spherocytes Pappenheimer Bodies Sickle Cells Target Cells Tear Drop Cells Ovalocytes Helmet Cells Lindsay-Wilson[place] Bodies [place] Rings [place] Cells Bite Cells Crenated Cell Elliptocytes Acanthocytes (Spur) Rouleaux Hemoglobin C Crystals Schistocytes Malaria parasites Malik Bodies Hem Pathologist Commnt PT (12.2-14.9) Sec. INR (0.87-1.13) APTT (24.2-36.6) Sec. POC ABG pH 7.387 (7.35-7.45) POC ABG pCO2 40.3 (35-45) POC ABG pO2 53 L (80-105) POC ABG HCO3 24.2 POC ABG Total CO2 25 POC ABG O2 Sat 87 POC ABG Base Excess -1 FiO2 21 % POC Glucose (70-105) - EKG Data When compared to previous EKG there are: previous EKG unavailable 09/24/16 21:16 , 75 bpm, borderline left axis deviation, atrial flutter, not morphologically consistent with STEMI, abnormal EKG. - Radiology Data Radiology results: report reviewed, image reviewed interpreted by me: X-ray of the foot demonstrates nondisplaced fractures of the third and fourth tarsal bones. Pelvis x-ray demonstrates DJD, no acute disease. X-ray of the chest is rotated, status post sternotomy, pulmonary vascular congestion, elevated right hemidiaphragm, possible small right lower lobe effusion. Noncontrast CT scan of the brain is negative for acute disease. CT scan of the cervical spine is negative for acute disease. CT scan of the chest suggest congestive heart failure. CT scan of the lumbar spine x-rays no fracture or dislocation. Nonspecific disc abnormality noted in the left side. Critical care attestation.: If time is entered above; I have spent that time in minutes in the direct care of this critically ill patient, excluding procedure time. ED Disposition Clinical Impression: Acute hypoxemic respiratory failure, Foot fracture, right, Debility Disposition: OP ADMITTED IP TO THIS HOSP Is pt being admited?: Yes Condition: Stable Referrals: PRIMARY CARE, [Primary Care Provider] - 3-5 Days
[2016-09-24 20:55] LABS: ISTAT Base Excess -1; ISTAT DEVICE 0; ISTAT HCO3 24.2; ISTAT PCO2 40.3 (35-45); ISTAT PH 7.387 (7.35-7.45); ISTAT PO2 53 (80-105); ISTAT SO2 87; ISTAT TCO2 25
--- NOTE | 2016-09-24 21:30 | XRay Report ---
FINAL REPORT PROCEDURE: XR CHEST 1V AP TECHNIQUE: Chest radiograph anteroposterior view. CPT 22596 HISTORY: dyspnea COMPARISON: No prior studies are available for comparison. FINDINGS: Patient is rotated to the right. There is cardiomegaly without pulmonary venous congestion. Postoperative changes are seen. No pneumothorax or pleural effusion is seen. Opacities at the lung bases are probably hypoventilatory changes but pneumonia is not excluded. IMPRESSION: Cardiomegaly is suspected without CHF. Probable hypoventilatory changes are seen at the lung bases but pneumonia is not excluded. Follow-up PA and lateral views of the chest may be useful if symptoms do not improve.
[2016-09-24 21:37] LABS: Bacteria,Urine 1+ /HPF (Negative); Bilirubin,Urine NEG (Negative); Blood,Urine NEG (Negative); Ketones,Urine NEG (Negative); Leukocyte Esterase,Urine NEG (Negative); Mucus,Urine FEW /HPF; Nitrite,Urine NEG (Negative); Protein,Urine <15 mg/dL mg/dL (Negative); Urobilinogen,Urine < 2.0 mg/dL (<2.0)
[2016-09-24 22:07] LABS: BUN/Creatinine Ratio 27.27; Calcium 8.9 mg/dL (8.4-10.2); Chloride 98.2 mmol/L (98-107); Magnesium 2.1 mg/dL (1.7-2.3); Potassium 4.5 mmol/L (3.6-5.0)
[2016-09-24 22:10] LABS: Creatine Kinase 82 units/L (30-135)
--- NOTE | 2016-09-24 23:08 | Cat Scan Report ---
FINAL REPORT PROCEDURE: CT HEAD/BRAIN WO CON TECHNIQUE: Computerized tomography of the head was performed without contrast material. HISTORY: fall weakness COMPARISON: No prior studies are available for comparison. FINDINGS: There is opacification of an anterior right ethmoid air cell. Mastoid air cells appear clear. No calvarial fracture is seen. Cerebral ventricles are normal in size. Mild chronic small vessel ischemic changes are seen with moderate diffuse volume loss in the brain. No acute intracranial hemorrhage or mass effect is seen. Calcifications are seen in the distal vertebral arteries and distal ICAs. IMPRESSION: Mild chronic small vessel ischemic changes are seen without evidence of acute abnormality.
--- NOTE | 2016-09-24 23:11 | Cat Scan Report ---
FINAL REPORT PROCEDURE: CT CERVICAL SPINE WO CON TECHNIQUE: Computerized tomography of the cervical spine was performed from the skull base to T1 without contrast material. HISTORY: fall weakness COMPARISON: No prior studies are available for comparison. FINDINGS: Cervical lordosis is preserved. Mild diffuse arthritic changes are seen with areas of mild bony central canal and neural foraminal stenosis. There is no subluxation. No prevertebral edema is seen. No fracture is seen. IMPRESSION: Mild diffuse arthritic changes are seen without evidence of fracture.
--- NOTE | 2016-09-24 23:17 | Cat Scan Report ---
FINAL REPORT PROCEDURE: CT LUMBAR SPINE WO CON TECHNIQUE: Computerized axial tomography of the lumbar spine was performed from T12 to the sacrum without contrast material. HISTORY: fall weakness COMPARISON: No prior studies are available for comparison. FINDINGS: Minimal chronic dextroscoliosis is seen in the lumbar spine. Associated mild to moderate lateral osteophytes are seen throughout the lumbar spine. No lumbar compression fracture is seen. At L1-2 there is diffuse disc bulge with possible disc protrusion or extrusion in the left paracentral region. Associated vacuum phenomena is seen in the left lateral recess. Moderate bilateral neural foraminal narrowing is seen with moderate to prominent left lateral recess stenosis and moderate central canal stenosis with thecal sac effacement. At L2-3 there is minimal diffuse disc bulge causing no significant stenosis At L3-4 there is diffuse disc bulge with mild right-sided uncovertebral osteophyte formation. Moderate lateral recess stenosis and mild central canal stenosis is seen. At L4-5 partially calcified central disc bulge and uncovertebral osteophytes cause mild central canal and lateral recess stenosis. At L5-S1 prominent right-sided and moderate left-sided facet hypertrophy is seen with uncovertebral osteophytes. There is likely compression of the bilateral L5 nerve roots in the neural foramina due to these chronic bony changes. IMPRESSION: No fracture is seen. Possible left paracentral disc protrusion or extrusion is present at at L1-2 causing prominent left lateral recess stenosis and moderate thecal sac effacement. Further evaluation with MRI may be useful.
--- NOTE | 2016-09-24 23:23 | Cat Scan Report ---
FINAL REPORT PROCEDURE: CT CHEST WO CON TECHNIQUE: Computerized axial tomography of the chest was performed without contrast material. This study is performed without intravenous contrast and the sensitivity for pathology, including neoplasms, adenopathy, abscess, pulmonary embolism and aortic dissection, is reduced. HISTORY: dyspnea COMPARISON: Chest x-ray from the same day TECHNICAL QUALITY: Satisfactory. FINDINGS: Hypoventilatory changes are seen in the lungs. Prominent cardiophrenic fat pads are seen. No pneumothorax or pleural effusion is seen. There is cardiomegaly and possible changes of CHF. Thoracic aorta is normal in size. A few small likely reactive mediastinal lymph nodes are seen. There is mild fullness of the right adrenal gland possibly due to adrenal hyperplasia. There is mild eventration of the midline fascia in the midline of the upper anterior abdominal wall. Slight irregularity of the anterior aspect of the right 5th rib could be a nondisplaced fracture but may be old healed fracture. IMPRESSION: Possible nondisplaced fracture of the anterior aspect of the right 5th rib is seen but this may be old healed fracture. No pneumothorax or pleural effusion is seen. Likely changes of CHF are present.
[2016-09-25] MEDS ORDERED: ULTRAM ONE (05:10)
[2016-09-25] MEDS ORDERED: ULTRAM PO ONE (05:13)
[2016-09-25] MEDS ORDERED: LASIX IV ONE (05:37)
--- NOTE | 2016-09-25 07:40 | History and Physical Report ---
History of Present Illness Date of examination: 09/25/16 Date of admission: 09/25/16 Chief complaint: foot/toe pain, sob History of present illness: 76-year-old female presents with chief complaint of dyspnea and inability to ambulate. Patient has a significant past medical history of CHF, diabetes mellitus type 2, COPD and hypertension. Patient reports that she has been short of breath most of her adult life with exertional activity. Patient denies any chest pain, nausea, vomiting or diaphoresis. Patient reports a recent fall over the weekend and having injured the toes on her right lower extremity. Patient reports that she has had increase difficulty with ambulating as a result. Patient states she normally ambulates with a walker at baseline. Patient denies any lower extremity swelling, PND or orthopnea. No cough cold like symptoms. No fever chills. No headache or visual disturbances. Past History Past Medical History: COPD, diabetes, heart failure, hypertension, other (sleep apnea) Past Surgical History: No surgical history Social history: no significant social history Family history: no significant family history Medications and Allergies Allergies Allergy/AdvReac Type Severity Reaction Status Date / Time amoxicillin trihydrate Allergy Unknown Verified 09/24/16 15:42 [From Augmentin] meperidine HCl [From Demerol] Allergy Unknown Verified 09/24/16 15:42 potassium clavulanate Allergy Unknown Verified 09/24/16 15:42 [From Augmentin] Sulfa (Sulfonamide Allergy Unknown Verified 09/24/16 15:42 Antibiotics) Home Medications Medication Instructions Recorded Confirmed Last Taken Type Clopidogrel Bisulfate [Plavix] 75 mg PO DAILY 09/24/16 09/24/16 Unknown History Review of Systems All systems: negative Exam - Constitutional Vitals: Temp Pulse Resp BP Pulse Ox 99.4 F 79 12 123/71 97 09/24/16 21:21 09/25/16 04:21 09/25/16 04:21 09/25/16 04:21 09/25/16 04:21 General appearance: Present: no acute distress, well-nourished - EENT Eyes: Present: PERRL ENT: hearing intact, clear oral mucosa - Neck Neck: Present: supple, normal ROM - Respiratory Respiratory effort: normal Respiratory: bilateral: CTA - Cardiovascular Heart Sounds: Present: S1 & S2. Absent: rub, click - Extremities Extremities: pulses symmetrical, No edema Peripheral Pulses: within normal limits - Abdominal General gastrointestinal: Present: soft, non-tender, non-distended, normal bowel sounds Female genitourinary: Present: normal - Integumentary Integumentary: Present: clear, warm, dry - Musculoskeletal Musculoskeletal: gait normal, strength equal bilaterally - Psychiatric Psychiatric: appropriate mood/affect, intact judgment & insight - Neurologic Neurologic: CNII-XII intact, moves all extremities Results - Labs CBC & Chem 7: 09/24/16 16:52 09/24/16 21:28 Labs: Laboratory Last Values WBC 14.9 K/mm3 (4.5-11.0) H 09/24/16 16:52 RBC 4.81 M/mm3 (3.65-5.03) 09/24/16 16:52 Hgb 14.3 gm/dl (10.1-14.3) 09/24/16 16:52 Hct 44.2 % (30.3-42.9) H 09/24/16 16:52 MCV 92 fl (79-97) 09/24/16 16:52 MCH 30 pg (28-32) 09/24/16 16:52 MCHC 32 % (30-34) 09/24/16 16:52 RDW 15.3 % (13.2-15.2) H 09/24/16 16:52 Plt Count 186 K/mm3 (140-440) 09/24/16 16:52 [place] % (Auto) Scraper Hand 09/24/16 16:52 Add Manual Diff Complete 09/24/16 16:52 Total Counted 100 09/24/16 16:52 Seg Neuts % (Manual) 73.0 % (40.0-70.0) H 09/24/16 16:52 Band Neutrophils % 0 % 09/24/16 16:52 Lymphocytes % (Manual) 14.0 % (13.4-35.0) 09/24/16 16:52 Reactive Lymphs % (Man) 0 % 09/24/16 16:52 Monocytes % (Manual) 13.0 % (0.0-7.3) H 09/24/16 16:52 Eosinophils % (Manual) 0 % (0.0-4.3) 09/24/16 16:52 Basophils % (Manual) 0 % (0.0-1.8) 09/24/16 16:52 Metamyelocytes % 0 % 09/24/16 16:52 Myelocytes % 0 % 09/24/16 16:52 Promyelocytes % 0 % 09/24/16 16:52 Blast Cells % 0 % 09/24/16 16:52 Nucleated RBC % Not Reportable 09/24/16 16:52 Seg Neutrophils # Man 10.9 K/mm3 (1.8-7.7) H 09/24/16 16:52 Band Neutrophils # 0.0 K/mm3 09/24/16 16:52 Lymphocytes # (Manual) 2.1 K/mm3 (1.2-5.4) 09/24/16 16:52 Abs React Lymphs (Man) 0.0 K/mm3 09/24/16 16:52 Monocytes # (Manual) 1.9 K/mm3 (0.0-0.8) H 09/24/16 16:52 Eosinophils # (Manual) 0.0 K/mm3 (0.0-0.4) 09/24/16 16:52 Basophils # (Manual) 0.0 K/mm3 (0.0-0.1) 09/24/16 16:52 Metamyelocytes # 0.0 K/mm3 09/24/16 16:52 Myelocytes # 0.0 K/mm3 09/24/16 16:52 Promyelocytes # 0.0 K/mm3 09/24/16 16:52 Blast Cells # 0.0 K/mm3 09/24/16 16:52 WBC Morphology Not Reportable 09/24/16 16:52 Hypersegmented Neuts Not Reportable 09/24/16 16:52 Hyposegmented Neuts Not Reportable 09/24/16 16:52 Hypogranular Neuts Not Reportable 09/24/16 16:52 Smudge Cells Not Reportable 09/24/16 16:52 Toxic Granulation Not Reportable 09/24/16 16:52 Toxic Vacuolation Not Reportable 09/24/16 16:52 Dohle Bodies Not Reportable 09/24/16 16:52 Pelger-Huet Anomaly Not Reportable 09/24/16 16:52 Loi Rods Not Reportable 09/24/16 16:52 Platelet Estimate Appears normal 09/24/16 16:52 Clumped Platelets Not Reportable 09/24/16 16:52 Plt Clumps, EDTA Not Reportable 09/24/16 16:52 Large Platelets Not Reportable 09/24/16 16:52 Giant Platelets Not Reportable 09/24/16 16:52 Platelet Satelliting Not Reportable 09/24/16 16:52 Plt Morphology Comment Not Reportable 09/24/16 16:52 RBC Morphology Not Reportable 09/24/16 16:52 Dimorphic RBCs Not Reportable 09/24/16 16:52 Polychromasia Not Reportable 09/24/16 16:52 Hypochromasia Not Reportable 09/24/16 16:52 Poikilocytosis Few 09/24/16 16:52 Anisocytosis Not Reportable 09/24/16 16:52 Microcytosis Not Reportable 09/24/16 16:52 Macrocytosis Not Reportable 09/24/16 16:52 Spherocytes Not Reportable 09/24/16 16:52 Pappenheimer Bodies Not Reportable 09/24/16 16:52 Sickle Cells Not Reportable 09/24/16 16:52 Target Cells Not Reportable 09/24/16 16:52 Tear Drop Cells Not Reportable 09/24/16 16:52 Ovalocytes Not Reportable 09/24/16 16:52 Helmet Cells Not Reportable 09/24/16 16:52 Lindsay-[place] Bodies Not Reportable 09/24/16 16:52 [place] Rings Not Reportable 09/24/16 16:52 [place] Cells Not Reportable 09/24/16 16:52 Bite Cells Not Reportable 09/24/16 16:52 Crenated Cell Not Reportable 09/24/16 16:52 Elliptocytes Not Reportable 09/24/16 16:52 Acanthocytes (Spur) Not Reportable 09/24/16 16:52 Rouleaux Not Reportable 09/24/16 16:52 Hemoglobin C Crystals Not Reportable 09/24/16 16:52 Schistocytes Not Reportable 09/24/16 16:52 Malaria parasites Not Reportable 09/24/16 16:52 Malik Bodies Not Reportable 09/24/16 16:52 Hem Pathologist Commnt No 09/24/16 16:52 PT 16.0 Sec. (12.2-14.9) H 09/24/16 16:52 INR 1.29 (0.87-1.13) H 09/24/16 16:52 APTT 29.5 Sec. (24.2-36.6) 09/24/16 16:52 POC ABG pH 7.387 (7.35-7.45) 09/24/16 20:42 POC ABG pCO2 40.3 (35-45) 09/24/16 20:42 POC ABG pO2 53 (80-105) L 09/24/16 20:42 POC ABG HCO3 24.2 09/24/16 20:42 POC ABG Total CO2 25 09/24/16 20:42 POC ABG O2 Sat 87 09/24/16 20:42 POC ABG Base Excess -1 09/24/16 20:42 FiO2 21 % 09/24/16 20:42 Sodium 136 mmol/L (137-145) L 09/24/16 21:28 Potassium 4.5 mmol/L (3.6-5.0) 09/24/16 21:28 Chloride 98.2 mmol/L (98-107) 09/24/16 21:28 Carbon Dioxide 22 mmol/L (22-30) 09/24/16 21:28 Anion Gap 20 mmol/L 09/24/16 21:28 BUN 30 mg/dL (7-17) H 09/24/16 21:28 Creatinine 1.1 mg/dL (0.7-1.2) 09/24/16 21:28 Estimated GFR 49 ml/min 09/24/16 21:28 BUN/Creatinine Ratio 27.27 % 09/24/16 21:28 Glucose 92 mg/dL (65-100) 09/24/16 21:28 POC Glucose 86 (70-105) 09/24/16 23:22 Calcium 8.9 mg/dL (8.4-10.2) 09/24/16 21:28 Magnesium 2.1 mg/dL (1.7-2.3) 09/24/16 21:28 Total Creatine Kinase 82 units/L (30-135) 09/24/16 21:28 Troponin T 0.023 ng/mL (0.00-0.029) 09/24/16 21:28 NT-Pro-B Natriuret Pep 2722 pg/mL (0-900) H 09/24/16 21:28 Urine Color Yellow (Yellow) 09/24/16 21:28 Urine Turbidity Clear (Clear) 09/24/16 21: Urine pH 5.0 (5.0-7.0) 09/24/16: Ur Specific [place] 1.018 (1.003-1.030) 09/24/16 21: Urine Protein <15 mg/dl mg/dL (Negative) 09/24/16: Urine Glucose (UA) Neg mg/dL (Negative) 09/24/16: Urine Ketones Neg mg/dL (Negative) 09/24/16: Urine Blood Neg (Negative) 09/24/16: Urine Nitrite Neg (Negative) 09/24/16: Urine Bilirubin Neg (Negative) 09/24/16: Urine Urobilinogen < 2.0 mg/dL (<2.0) 09/24/16: Ur Leukocyte Esterase Neg (Negative) 09/24/16: Urine WBC (Auto) 1.0 /HPF (0.0-6.0) 09/24/16: Urine RBC (Auto) 1.0 /HPF (0.0-6.0) 09/24/16: U Epithel Cells (Auto) < 1.0 /HPF (0-13.0) 09/24/16: Urine Bacteria (Auto) 1+ /HPF (Negative) 09/24/16: Urine Mucus Few /HPF 09/24/16:28 Assessment and Plan Assessment and plan: 1. Acute hypoxic respiratory failure. Etiology is multifactorial likely secondary to mild CHF decompensation and COPD exacerbation. Patient also has a history of sleep apnea. Patient will be maintained on O2 candidate for supportive care. CPAP at night. 2. Mild CHF exacerbation. Patient will be placed on the heart failure pathway. Patient will receive 1 dose of Lasix now and continue to follow on status for ongoing diuresis. Check echocardiogram for left ventricular systolic function. Consult cardiology for further evaluation. 3. Acute COPD exacerbation. Patient will be treated with IV steroids, breathing treatments and empiric antibiotics. 4. s/p fall. CT scan of the head and neck and chest are essentially negative. 5. Nondisplaced fractures of the third and fourth metatarsal bones. PT/OT evaluation. Case management consultation for possible rehabilitation placement. 6. Type 2 diabetes mellitus. Accu-Cheks and sliding scale insulin. 7. DVT prophylaxis. Lovenox daily.
--- NOTE | 2016-09-25 07:49 | Admit Criteria Form ---
Admission Criteria Documentation: RESPIRATORY FAILURE GRG Clinical Indications for Admission to Inpatient Care (Place 'X' for any and all applicable criteria): Hospital admission is needed for appropriate care of the patient because of acute respiratory failure or insufficiency as indicated by ANY ONE of the following(1)(2)(3)(4)(5)(6)(7)(8): [ ]I. Mechanical ventilation needed (acute invasive or noninvasive) [ ]II. Severe ventilation deficit as indicated by ANY ONE of the following (9) [ ]a) Respiratory acidosis (pH less than 7.32 and partial pressure of carbon dioxide greater than 40 mm Hg (5.3 kPa)) [ ]b) Partial pressure of carbon dioxide greater than 44 mm Hg (5.9 kPa ) (new) [ ]c) Airflow measurements less than 25% of predicted (eg, peak expiratory flow rate less than 100 L/minute) [ ]d) Forced vital capacity less than 15 mL/kg of ideal body weight, or 50% decrease in vital capacity from baseline [ ]III. Noncardiac pulmonary edema not resolving with rapid emergency treatment (8) [X]IV. Severe respiratory distress as indicated by ANY ONE of the following: [ ]a) Severe tachypnea (respiratory rate greater than 30, greater than 45 for 6-month-old, greater than 60 for ) [X]b) Severe hypoxemia (partial pressure of oxygen less than 50 mm Hg ( 6.7 kPa) on greater than 50% oxygen or partial pressure of oxygen to FIO2 ratio less than 200) [ ]c) Mental status deterioration from respiratory disease [ ]V. Airway obstruction or inadequate protection [A](10)(11) The original [employer] content created by [employer] has been revised. The portions of the content which have been revised are identified through the use of italic text or in bold, and [email or web address] has neither reviewed nor approved the modified material. All other unmodified content is copyright [employer]. Please see references footnoted in the original [employer] edition 2016 Admission Criteria Met: Yes
[2016-09-25] MEDS ORDERED: LASIX ONE (08:15)
--- NOTE | 2016-09-25 08:37 | XRay Report ---
AP pelvis. History: Pelvic pain after fall. Findings: There are no fractures or other acute findings. Narrowing of the hip joints is noted. Impression: No acute findings.
[2016-09-25] MEDS ORDERED: DULCOLAX PR PRN (09:00)
[2016-09-25] MEDS ORDERED: D50W (25GM) IV PRN (09:00)
--- NOTE | 2016-09-25 11:07 | Consultation ---
History of Present Illness Consult date: 09/25/16 Consult reason: congestive heart failure History of present illness: This is a 76yr old woman with multiple medical problems. She has a history of coronary artery disease with remote 3 vessel bypass grafting. There is a LANIER graft to the LAD, saphenous vein graft to the RCA and saphenous vein graft to the first diagonal. She had a persantine thallium stress test 4 months ago that showed a normal perfusion scan. An echocardiogram done a year ago reports a left ventricular ejection fraction 45-50%. She also has a history of chronic atrial fibrillation and is on plavix therapy. Patient previously considered not a candidate for oral anticoagulation due to history of falls. Co-morbidities includes sleep apnea, hypertension and diabetes mellitus. Patient presents to the hospital with inability to walk following a mechanical fall a few days ago. Patient has been admitted to the hospital and a cardiac consultation is requested for CHF. Patient is resting in bed comfortably. Patient reports shortness of breath but chronic in nature. She is not on home oxygen. She denies chest pain. Chest x-ray shows mild interstitial edema. Her ECG shows atrial fibrillation with a well controlled ventricular rate. Past History Past Medical History: atrial fib, CAD, diabetes, hypertension, other (Sleep apnea) Past Surgical History: CABG Medications and Allergies Allergies Allergy/AdvReac Type Severity Reaction Status Date / Time amoxicillin trihydrate Allergy Unknown Verified 09/24/16 15:42 [From Augmentin] meperidine HCl [From Demerol] Allergy Unknown Verified 09/24/16 15:42 potassium clavulanate Allergy Unknown Verified 09/24/16 15:42 [From Augmentin] Sulfa (Sulfonamide Allergy Unknown Verified 09/24/16 15:42 Antibiotics) Home Medications Medication Instructions Recorded Confirmed Last Taken Type Clopidogrel Bisulfate [Plavix] 75 mg PO DAILY 09/24/16 09/24/16 Unknown History Active Meds: Active Medications Acetaminophen (Tylenol) 650 mg PO Q4H PRN PRN Reason: Pain MILD(1-3)/Fever >100.5/CASTILLO Bisacodyl (Dulcolax) 10 mg DC QDAY PRN PRN Reason: Constipation unrelieved by MOM Clopidogrel Bisulfate (Plavix) 75 mg PO DAILY VIJAYA Dextrose (D50w (25gm)) 50 ml IV PRN PRN PRN Reason: Hypoglycemia Enoxaparin Sodium (Lovenox) 40 mg SUB-Q QDAY VIJAYA Furosemide (Lasix) 20 mg IV QDAY VIJAYA Insulin Human Regular (Novolin R) 0 units SUB-Q ACHS VIJAYA PRN Reason: Protocol Magnesium Hydroxide (Milk Of Magnesia) 30 ml PO Q4H PRN PRN Reason: Constipation Methylprednisolone Sodium Succinate (Solu-Medrol) 40 mg IV Q12HR VIJAYA Ondansetron HCl (Zofran) 4 mg IV Q8H PRN PRN Reason: N/V unrelieved by Reglan Physical Examination Vital Signs Temp Pulse Resp BP Pulse Ox 97.1 F L 92 H 16 123/73 99 09/24/16 15:42 09/24/16 15:42 09/24/16 15:42 09/24/16 15:42 09/24/16 15:42 General appearance: no acute distress HEENT: Positive: PERRL Neck: Positive: trachea midline Cardiac: Positive: irregularly irregular Results 09/24/16 16:52 09/24/16 21:28 Assessment and Plan Right foot fracture Chronic Afib on plavix therapy. Previously considered not a candidate for oral anticoagulation due to history of falls. Hx of CAD s/p 3 vessel CABG normal perfusion MPI 05/2016 EF 45-50% on echo 09/2015 Sleep apnea Hypertension Diabetes We will get an echocardiogram for assessment of her LVEF.
[2016-09-25] MEDS: PERCOCET 5/325 PO PRN ×3 (12:28→21:58)
[2016-09-25] MEDS: PLAVIX PO SCH (12:29)
[2016-09-25] MEDS: LOVENOX SUB-Q SCH (12:29)
[2016-09-25] MEDS: MILK OF MAGNESIA PO PRN (21:58)
[2016-09-26 06:55] LABS: Basophils % (Auto) 0.1 % (0.0-1.8); Hematocrit 45.8 % (30.3-42.9); Hemoglobin 15.2 gm/dl (10.1-14.3); Mean Corpuscular HGB Conc 33 % (30-34); Mean Corpuscular Hemoglobin 30 pg (28-32); Mean Corpuscular Volume 91 fl (79-97); Platelet Count 239 K/mm3 (140-440); Red Blood Count 5.04 M/mm3 (3.65-5.03); White Blood Count 8.4 K/mm3 (4.5-11.0)
[2016-09-26 07:11] LABS: BUN/Creatinine Ratio 27.5; Calcium 9.4 mg/dL (8.4-10.2); Chloride 92.1 mmol/L (98-107); Potassium 4.5 mmol/L (3.6-5.0)
--- NOTE | 2016-09-26 08:30 | Progress Note ---
Assessment and Plan Nondisplaced fractures of the third and fourth metatarsals Shortness of breath, chronic Sleep apnea Chronic Afib on plavix therapy. Previously considered not a candidate for oral anticoagulation due to history of falls. Hx of CAD s/p 3 vessel CABG normal perfusion MPI 05/2016 EF 50-55% on echo this admission Hypertension Diabetes Subjective Date of service: 09/26/16 Interval history: Patient reports she is feeling somewhat better. States her shortness of breath is less. Objective Vital Signs Temp Pulse Resp Resp BP Pulse Ox 09/26/16 07:25 97.9 F 59 L 20 135/84 98 09/26/16 05:15 98.3 F 79 20 140/83 96 09/26/16 00:00 98.6 F 80 143/88 95 09/25/16 21:03 95 09/25/16 19:17 20 09/25/16 18:21 16 09/25/16 18:17 16 09/25/16 16:27 98.0 F 70 20 126/63 95 09/25/16 13:28 20 09/25/16 12:28 20 09/25/16 10:53 97.6 F 68 20 124/75 98 09/25/16 09:05 98 - Physical Examination General: No Apparent Distress HEENT: Positive: PERRL Neck: Positive: trachea midline Cardiac: Positive: Reg Rate and Rhythm Lungs: Positive: Decreased Breath Sounds - Labs and Meds CBC 09/26/16 Range/Units 06:16 WBC 8.4 (4.5-11.0) K/mm3 RBC 5.04 H (3.65-5.03) M/mm3 Hgb 15.2 H (10.1-14.3) gm/dl Hct 45.8 H (30.3-42.9) % Plt Count 239 (140-440) K/mm3 Lymph # 0.6 L (1.2-5.4) K/mm3 [place] # 0.3 (0.0-0.8) K/mm3 Eos # 0.0 (0.0-0.4) K/mm3 Baso # 0.0 (0.0-0.1) K/mm3 Comprehensive Metabolic Panel 09/26/16 Range/Units 06:16 Sodium 134 L (137-145) mmol/L Potassium 4.5 (3.6-5.0) mmol/L Chloride 92.1 L (98-107) mmol/L Carbon Dioxide 27 (22-30) mmol/L BUN 33 H (7-17) mg/dL Creatinine 1.2 (0.7-1.2) mg/dL Glucose 248 H (65-100) mg/dL Calcium 9.4 (8.4-10.2) mg/dL
[2016-09-26] MEDS: PERCOCET 5/325 PO PRN ×2 (10:16→21:55)
[2016-09-26] MEDS: PLAVIX PO SCH (10:16)
[2016-09-26] MEDS: LOVENOX SUB-Q SCH (10:17)
[2016-09-26] MEDS: LASIX IV SCH (10:17)
--- NOTE | 2016-09-26 13:36 | Consultation ---
History of Present Illness Consult date: 09/26/16 Requesting physician: EMLCHOR BLANCO Reason for consult: dyspnea, COPD, obstructive sleep apnea History of present illness: 76 y/o female with known COPD and ROSSI, followed by [facility], admitted with falls. Found to have low O2 sat on room air at 88%. Pulmonary consulted. Patient is not on oxygen at home. Only wears CPAP at night. Is suppose to take Breo daily but is not compliant with therapy. Per patient and family at bedside. Went to [place] about 15 days ago and she only took her meds twice while away. She is currently on 2 liters with sat of 95% as last recorded. Past History Past Medical History: atrial fib, CAD, diabetes, hypertension, other (Sleep apnea) Past Surgical History: CABG Social history: no significant social history Family history: no significant family history Medications and Allergies Allergies Allergy/AdvReac Type Severity Reaction Status Date / Time amoxicillin trihydrate Allergy Unknown Verified 09/24/16 15:42 [From Augmentin] meperidine HCl [From Demerol] Allergy Unknown Verified 09/24/16 15:42 potassium clavulanate Allergy Unknown Verified 09/24/16 15:42 [From Augmentin] Sulfa (Sulfonamide Allergy Unknown Verified 09/24/16 15:42 Antibiotics) Home Medications Medication Instructions Recorded Confirmed Last Taken Type Clopidogrel Bisulfate [Plavix] 75 mg PO DAILY 09/24/16 09/24/16 Unknown History Aspirin [Adult Low Dose Aspirin EC] 81 mg PO 09/26/16 Unknown History Celecoxib [celeBREX] 200 mg PO 09/26/16 Unknown History FLUoxetine [PROzac] 20 mg PO DAILY 09/26/16 09/26/16 Unknown History Fluticasone/Vilanterol [Breo 09/26/16 Unknown History Ellipta 100-25 Mcg INH] Furosemide [Lasix TAB] 09/26/16 Unknown History Furosemide [Lasix] 20 mg PO QDAY 09/26/16 09/26/16 Unknown History Olmesartan/Hydrochlorothiazide 1 tab PO QDAY 09/26/16 09/26/16 Unknown History [Benicar HCT 40-12.5 mg] Rosuvastatin (Nf) [Crestor] 5 mg PO 09/26/16 Unknown History Tolterodine [Detrol LA] 4 mg PO QDAY 09/26/16 09/26/16 Unknown History methOCARBAMOL [Robaxin TAB] 500 mg PO QID 09/26/16 09/26/16 Unknown History Active Meds: Active Medications Acetaminophen (Tylenol) 650 mg PO Q4H PRN PRN Reason: Pain MILD(1-3)/Fever >100.5/CASTILLO Bisacodyl (Dulcolax) 10 mg ME QDAY PRN PRN Reason: Constipation unrelieved by MOM Clopidogrel Bisulfate (Plavix) 75 mg PO DAILY [facility] Last Admin: 09/26/16 10:16 Dose: 75 mg Dextrose (D50w (25gm)) 50 ml IV PRN PRN PRN Reason: Hypoglycemia Enoxaparin Sodium (Lovenox) 40 mg SUB-Q QDAY [facility] Last Admin: 09/26/16 10:17 Dose: 40 mg Furosemide (Lasix) 20 mg IV QDAY [facility] Last Admin: 09/26/16 10:17 Dose: 20 mg Insulin Human Regular (Novolin R) 0 units SUB-Q ACHS [facility] PRN Reason: Protocol Last Admin: 09/26/16 13:07 Dose: Not Given Magnesium Hydroxide (Milk Of Magnesia) 30 ml PO Q4H PRN PRN Reason: Constipation Last Admin: 09/25/16 21:58 Dose: 30 ml Methylprednisolone Sodium Succinate (Solu-Medrol) 40 mg IV Q12HR [facility] Last Admin: 09/26/16 10:17 Dose: 40 mg Ondansetron HCl (Zofran) 4 mg IV Q8H PRN PRN Reason: N/V unrelieved by Reglan Oxycodone/Acetaminophen (Percocet 5/325) 1 tab PO Q4H PRN PRN Reason: Pain, Moderate (4-6) Last Admin: 09/26/16 10:16 Dose: 1 tab Review of Systems All systems: negative Physical Examination Vital signs: Vital Signs Temp Pulse Resp BP Pulse Ox 97.1 F L 92 H 16 123/73 99 09/24/16 15:42 09/24/16 15:42 09/24/16 15:42 09/24/16 15:42 09/24/16 15:42 General appearance: no acute distress, alert Eyes: non-icteric ENT: oropharynx moist Neck: supple Effort: normal Ascultation: Bilateral: rales (at bases) Percussion: Bilateral: not dull Cardiovascular: regular rate and rhythm Gastrointestinal: normoactive bowel sounds Results - Laboratory Findings CBC and BMP: 09/26/16 06:16 09/26/16 06:16 ABG POC ABG pH 7.387 (7.35-7.45) 09/24/16 20:42 POC ABG pCO2 40.3 (35-45) 09/24/16 20:42 POC ABG pO2 53 (80-105) L 09/24/16 20:42 POC ABG HCO3 24.2 09/24/16 20:42 POC ABG Total CO2 25 09/24/16 20:42 POC ABG O2 Sat 87 09/24/16 20:42 PT/INR, D-dimer PT 16.0 Sec. (12.2-14.9) H 09/24/16 16:52 INR 1.29 (0.87-1.13) H 09/24/16 16:52 Abnormal lab findings: Abnormal Labs 09/25/16 09/25/16 09/26/16 16:00 21:36 06:12 RBC Hgb Hct Lymph % (Auto) Lymph # Seg Neutrophils % Sodium Chloride BUN Glucose POC Glucose 208 H 308 H 195 H 09/26/16 09/26/16 09/26/16 06:16 06:16 10:56 RBC 5.04 H Hgb 15.2 H Hct 45.8 H Lymph % (Auto) 7.5 L Lymph # 0.6 L Seg Neutrophils % 89.3 H Sodium 134 L Chloride 92.1 L BUN 33 H Glucose 248 H POC Glucose 330 H - Diagnostic Findings CT scan - chest: report reviewed Assessment and Plan 76 y/o female with ROSSI, and COPD, and Pulmonary Hypertension, admitted with falls and has some mild lowering of her O2 sat, likely secondary to noncompliance with therapy. 1. Wean FiO2 as tolerated 2. Attempt to achieve net negative state with lasix and then switch back to PO dosing once dried out. 3. Will start BID pulmicort and brovana 4. Continue CPAP at night, with bleeding in of oxygen as needed to keep sats > 88%
[2016-09-26] MEDS ORDERED: ROBAXIN PO PRN (17:39)
--- NOTE | 2016-09-26 18:21 | Progress Note ---
Assessment and Plan - Patient Problems (1) COPD exacerbation Current Visit: Yes Status: Acute Plan to address problem: ont neb tx solumedrol and levaquin (2) Acute hypoxemic respiratory failure Current Visit: Yes Status: Acute Plan to address problem: Resolved (3) Debility Current Visit: Yes Status: Acute Plan to address problem: PT/OT (4) Foot fracture, right Current Visit: Yes Status: Acute Qualifiers: Encounter type: initial encounter Fracture type: F Fracture healing: F Plan to address problem: Conservative tx PT/OT (5) DVT prophylaxis Current Visit: Yes Status: Acute Plan to address problem: On lovenox (6) CHF (congestive heart failure) Current Visit: Yes Status: Chronic Qualifiers: Congestive heart failure type: combined Congestive heart failure chronicity : C Plan to address problem: on lasix (7) HTN (hypertension) Current Visit: Yes Status: Chronic Qualifiers: Hypertension type: essential hypertension Qualified Code(s): I10 - Essential (primary) hypertension Plan to address problem: olmesartan (8) HLD (hyperlipidemia) Current Visit: Yes Status: Chronic Qualifiers: Hyperlipidemia type: mixed hyperlipidemia Qualified Code(s): E78.2 - Mixed hyperlipidemia Plan to address problem: cont statins (9) CAD (coronary artery disease) Current Visit: Yes Status: Chronic Qualifiers: Coronary Disease-Associated Artery/Lesion type: [place] artery [place] vs. transplanted heart: N Associated angina: without angina Plan to address problem: on plavix (10) DVT prophylaxis Current Visit: Yes Status: Acute Plan to address problem: on lovenox History Interval history: Symptomatically better. Hospitalist Physical - Physical exam Narrative exam: WD WN female comfortable - Constitutional Vitals: Temp Pulse Resp BP Pulse Ox 98.3 F 64 18 105/56 98 09/26/16 15:30 09/26/16 15:30 09/26/16 15:30 09/26/16 15:30 09/26/16 07:25 General appearance: Present: no acute distress - EENT Eyes: Present: PERRL, EOM intact - Neck Neck: Present: supple, normal ROM - Respiratory Respiratory: bilateral: rhonchi - Cardiovascular Heart rate: 80 Rhythm: regular Heart Sounds: Present: S1 & S2 - Abdominal General gastrointestinal: soft, non-distended, normal bowel sounds - Integumentary Integumentary: Present: clear, warm - Psychiatric Psychiatric: appropriate mood/affect, intact judgment & insight, memory intact, cooperative - Neurologic Neurologic: CNII-XII intact, moves all extremities - Allied Health Allied health notes reviewed: nursing, case management Results - Labs CBC & Chem 7: 09/27/16 05:36 09/27/16 05:36 Labs: Laboratory Last Values WBC 8.4 K/mm3 (4.5-11.0) 09/26/16 06:16 RBC 5.04 M/mm3 (3.65-5.03) H 09/26/16 06:16 Hgb 15.2 gm/dl (10.1-14.3) H 09/26/16 06:16 Hct 45.8 % (30.3-42.9) H 09/26/16 06:16 MCV 91 fl (79-97) 09/26/16 06:16 MCH 30 pg (28-32) 09/26/16 06:16 MCHC 33 % (30-34) 09/26/16 06:16 RDW 15.0 % (13.2-15.2) 09/26/16 06:16 Plt Count 239 K/mm3 (140-440) 09/26/16 06:16 Lymph % (Auto) 7.5 % (13.4-35.0) L 09/26/16 06:16 [place] % (Auto) 3.1 % (0.0-7.3) 09/26/16 06:16 Eos % (Auto) 0.0 % (0.0-4.3) 09/26/16 06:16 Baso % (Auto) 0.1 % (0.0-1.8) 09/26/16 06:16 Lymph # 0.6 K/mm3 (1.2-5.4) L 09/26/16 06:16 [place] # 0.3 K/mm3 (0.0-0.8) 09/26/16 06:16 Eos # 0.0 K/mm3 (0.0-0.4) 09/26/16 06:16 Baso # 0.0 K/mm3 (0.0-0.1) 09/26/16 06:16 Add Manual Diff Complete 09/24/16 16:52 Total Counted 100 09/24/16 16:52 Seg Neutrophils % 89.3 % (40.0-70.0) H 09/26/16 06:16 Seg Neuts % (Manual) 73.0 % (40.0-70.0) H 09/24/16 16:52 Band Neutrophils % 0 % 09/24/16 16:52 Lymphocytes % (Manual) 14.0 % (13.4-35.0) 09/24/16 16:52 Reactive Lymphs % (Man) 0 % 09/24/16 16:52 Monocytes % (Manual) 13.0 % (0.0-7.3) H 09/24/16 16:52 Eosinophils % (Manual) 0 % (0.0-4.3) 09/24/16 16:52 Basophils % (Manual) 0 % (0.0-1.8) 09/24/16 16:52 Metamyelocytes % 0 % 09/24/16 16:52 Myelocytes % 0 % 09/24/16 16:52 Promyelocytes % 0 % 09/24/16 16:52 Blast Cells % 0 % 09/24/16 16:52 Nucleated RBC % Not Reportable 09/24/16 16:52 Seg Neutrophils # 7.5 K/mm3 (1.8-7.7) 09/26/16 06:16 Seg Neutrophils # Man 10.9 K/mm3 (1.8-7.7) H 09/24/16 16:52 Band Neutrophils # 0.0 K/mm3 09/24/16 16:52 Lymphocytes # (Manual) 2.1 K/mm3 (1.2-5.4) 09/24/16 16:52 Abs React Lymphs (Man) 0.0 K/mm3 09/24/16 16:52 Monocytes # (Manual) 1.9 K/mm3 (0.0-0.8) H 09/24/16 16:52 Eosinophils # (Manual) 0.0 K/mm3 (0.0-0.4) 09/24/16 16:52 Basophils # (Manual) 0.0 K/mm3 (0.0-0.1) 09/24/16 16:52 Metamyelocytes # 0.0 K/mm3 09/24/16 16:52 Myelocytes # 0.0 K/mm3 09/24/16 16:52 Promyelocytes # 0.0 K/mm3 09/24/16 16:52 Blast Cells # 0.0 K/mm3 09/24/16 16:52 WBC Morphology Not Reportable 09/24/16 16:52 Hypersegmented Neuts Not Reportable 09/24/16 16:52 Hyposegmented Neuts Not Reportable 09/24/16 16:52 Hypogranular Neuts Not Reportable 09/24/16 16:52 Smudge Cells Not Reportable 09/24/16 16:52 Toxic Granulation Not Reportable 09/24/16 16:52 Toxic Vacuolation Not Reportable 09/24/16 16:52 Dohle Bodies Not Reportable 09/24/16 16:52 Pelger-Huet Anomaly Not Reportable 09/24/16 16:52 Loi Rods Not Reportable 09/24/16 16:52 Platelet Estimate Appears normal 09/24/16 16:52 Clumped Platelets Not Reportable 09/24/16 16:52 Plt Clumps, EDTA Not Reportable 09/24/16 16:52 Large Platelets Not Reportable 09/24/16 16:52 Giant Platelets Not Reportable 09/24/16 16:52 Platelet Satelliting Not Reportable 09/24/16 16:52 Plt Morphology Comment Not Reportable 09/24/16 16:52 RBC Morphology Not Reportable 09/24/16 16:52 Dimorphic RBCs Not Reportable 09/24/16 16:52 Polychromasia Not Reportable 09/24/16 16:52 Hypochromasia Not Reportable 09/24/16 16:52 Poikilocytosis Few 09/24/16 16:52 Anisocytosis Not Reportable 09/24/16 16:52 Microcytosis Not Reportable 09/24/16 16:52 Macrocytosis Not Reportable 09/24/16 16:52 Spherocytes Not Reportable 09/24/16 16:52 Pappenheimer Bodies Not Reportable 09/24/16 16:52 Sickle Cells Not Reportable 09/24/16 16:52 Target Cells Not Reportable 09/24/16 16:52 Tear Drop Cells Not Reportable 09/24/16 16:52 Ovalocytes Not Reportable 09/24/16 16:52 Helmet Cells Not Reportable 09/24/16 16:52 [place] Bodies Not Reportable 09/24/16 16:52 Bison Rings Not Reportable 09/24/16 16:52 [place] Cells Not Reportable 09/24/16 16:52 Bite Cells Not Reportable 09/24/16 16:52 Crenated Cell Not Reportable 09/24/16 16:52 Elliptocytes Not Reportable 09/24/16 16:52 Acanthocytes (Spur) Not Reportable 09/24/16 16:52 Rouleaux Not Reportable 09/24/16 16:52 Hemoglobin C Crystals Not Reportable 09/24/16 16:52 Schistocytes Not Reportable 09/24/16 16:52 Malaria parasites Not Reportable 09/24/16 16:52 Malik Bodies Not Reportable 09/24/16 16:52 Hem Pathologist Commnt No 09/24/16 16:52 PT 16.0 Sec. (12.2-14.9) H 09/24/16 16:52 INR 1.29 (0.87-1.13) H 09/24/16 16:52 APTT 29.5 Sec. (24.2-36.6) 09/24/16 16:52 POC ABG pH 7.387 (7.35-7.45) 09/24/16 20:42 POC ABG pCO2 40.3 (35-45) 09/24/16 20:42 POC ABG pO2 53 (80-105) L 09/24/16 20:42 POC ABG HCO3 24.2 09/24/16 20:42 POC ABG Total CO2 25 09/24/16 20:42 POC ABG O2 Sat 87 09/24/16 20:42 POC ABG Base Excess -1 09/24/16 20:42 FiO2 21 % 09/24/16 20:42 Sodium 134 mmol/L (137-145) L 09/26/16 06:16 Potassium 4.5 mmol/L (3.6-5.0) 09/26/16 06:16 Chloride 92.1 mmol/L (98-107) L 09/26/16 06:16 Carbon Dioxide 27 mmol/L (22-30) 09/26/16 06:16 Anion Gap 19 mmol/L 09/26/16 06:16 BUN 33 mg/dL (7-17) H 09/26/16 06:16 Creatinine 1.2 mg/dL (0.7-1.2) 09/26/16 06:16 Estimated GFR 44 ml/min 09/26/16 06:16 BUN/Creatinine Ratio 27.50 % 09/26/16 06:16 Glucose 248 mg/dL (65-100) H 09/26/16 06:16 POC Glucose 330 (70-105) H 09/26/16 10:56 Calcium 9.4 mg/dL (8.4-10.2) 09/26/16 06:16 Magnesium 2.1 mg/dL (1.7-2.3) 09/24/16 21:28 Total Creatine Kinase 82 units/L (30-135) 09/24/16 21:28 Troponin T 0.023 ng/mL (0.00-0.029) 09/24/16 21:28 NT-Pro-B Natriuret Pep 2722 pg/mL (0-900) H 09/24/16 21:28 Urine Color Yellow (Yellow) 09/24/16 21:28 Urine Turbidity Clear (Clear) 09/24/16 21:28 Urine pH 5.0 (5.0-7.0) 09/24/16 21:28 Ur Specific [place] 1.018 (1.003-1.030) 09/24/16 21:28 Urine Protein <15 mg/dl mg/dL (Negative) 09/24/16 21:28 Urine Glucose (UA) Neg mg/dL (Negative) 09/24/16 21:28 Urine Ketones Neg mg/dL (Negative) 09/24/16 21:28 Urine Blood Neg (Negative) 09/24/16 21:28 Urine Nitrite Neg (Negative) 09/24/16 21:28 Urine Bilirubin Neg (Negative) 09/24/16 21:28 Urine Urobilinogen < 2.0 mg/dL (<2.0) 09/24/16 21:28 Ur Leukocyte Esterase Neg (Negative) 09/24/16 21:28 Urine WBC (Auto) 1.0 /HPF (0.0-6.0) 09/24/16 21:28 Urine RBC (Auto) 1.0 /HPF (0.0-6.0) 09/24/16 21:28 U Epithel Cells (Auto) < 1.0 /HPF (0-13.0) 09/24/16 21:28 Urine Bacteria (Auto) 1+ /HPF (Negative) 09/24/16 21:28 Urine Mucus Few /HPF 09/24/16 21:28 Short CBC 09/26/16 Range/Units 06:16 WBC 8.4 (4.5-11.0) K/mm3 Hgb 15.2 H (10.1-14.3) gm/dl Hct 45.8 H (30.3-42.9) % Plt Count 239 (140-440) K/mm3 BMP 09/26/16 06:16 Sodium 134 L Potassium 4.5 Chloride 92.1 L Carbon Dioxide 27 BUN 33 H Creatinine 1.2 Glucose 248 H Calcium 9.4
[2016-09-26] MEDS: TOPROL XL PO SCH (19:05)
[2016-09-26] MEDS: COZAAR PO SCH (19:06)
[2016-09-26] MEDS: PROzac PO SCH (19:06)
[2016-09-26] MEDS: HALFPRIN EC PO SCH (19:06)
[2016-09-26] MEDS: CLARITIN PO SCH (19:06)
[2016-09-26] MEDS: DETROL LA PO SCH (19:06)
[2016-09-27] MEDS: PERCOCET 5/325 PO PRN ×3 (06:10→23:37)
[2016-09-27 06:31] LABS: Hematocrit 44.4 % (30.3-42.9); Hemoglobin 14.8 gm/dl (10.1-14.3); Mean Corpuscular HGB Conc 33 % (30-34); Mean Corpuscular Hemoglobin 30 pg (28-32); Mean Corpuscular Volume 90 fl (79-97); Platelet Count 251 K/mm3 (140-440); Red Blood Count 4.95 M/mm3 (3.65-5.03); Red Cell Distribution Width 15.2 % (13.2-15.2); White Blood Count 10.6 K/mm3 (4.5-11.0)
[2016-09-27 06:32] LABS: Alanine Aminotransferase 13 units/L (7-56); Albumin/Globulin Ratio 0.8 %; Alkaline Phosphatase 80 units/L (35-129); Anion Gap 20 mmol/L; BUN/Creatinine Ratio 42.22; Bilirubin,Total 0.7 mg/dL (0.1-1.2); Blood Urea Nitrogen 38 mg/dL (7-17); Carbon Dioxide 25 mmol/L (22-30); Chloride 92.7 mmol/L (98-107); Glucose 177 mg/dL (65-100); Potassium 4.4 mmol/L (3.6-5.0); Sodium 133 mmol/L (137-145); Total Protein 6.7 g/dL (6.3-8.2)
[2016-09-27 08:12] LABS: Basophils % (Manual) 0 % (0.0-1.8); Blastocytes % (Manual) 0 %; Eosinophils % (Manual) 0 % (0.0-4.3)
[2016-09-27 08:17] LABS: Anisocytosis 1+
[2016-09-27 08:21] LABS: Diff Status Complete; Hypochromasia 1+
--- NOTE | 2016-09-27 10:11 | Progress Note ---
Assessment and Plan 1. Chronic atrial fibrillation 2. Three-vessel coronary artery disease. Left ventricular ejection fraction 50 -55%. Normal Lexiscan MPI May 2016 3. Essential hypertension 4. Type 2 diabetes mellitus 5. Obesity unspecified 6. Obstructive sleep apnea 7. Non-displaced Metatarsal fractures Plan. Cardiac-cazares stable continue present management Subjective Date of service: 09/27/16 Principal diagnosis: CAD Interval history: Patient denies any cardiac symptoms. Objective Vital Signs Temp Pulse Pulse Resp Resp BP BP 09/27/16 07:58 97.7 F 57 L 22 133/84 09/27/16 05:00 98.4 F 78 18 145/70 09/27/16 00:08 98.0 F 53 L 16 124/66 09/26/16 22:48 09/26/16 21:55 18 18 09/26/16 19:55 97.5 F L 77 20 138/81 09/26/16 19:06 137/86 09/26/16 19:05 82 137/86 09/26/16 15:30 98.3 F 64 18 105/56 09/26/16 12:15 97.6 F 66 20 136/89 09/26/16 10:16 18 Pulse Ox 09/27/16 07:58 95 09/27/16 05:00 98 09/27/16 00:08 96 09/26/16 22:48 95 09/26/16 21:55 09/26/16 19:55 96 09/26/16 19:06 09/26/16 19:05 09/26/16 15:30 09/26/16 12:15 09/26/16 10:16 - Physical Examination General: Appears Well, No Apparent Distress HEENT: Positive: PERRL, Normocephaly Neck: Positive: trachea midline. Negative: JVD/HJR Cardiac: Positive: Reg Rate and Rhythm, S1/S2, PMI, Laterally Displaced Lungs: Positive: clear to auscultation, No Wheeze, Rales, Rhonchi Abdomen: Positive: Soft Skin: Positive: Clear Extremities: Absent: edema - Labs and Meds Cardiac Enzymes 09/27/16 Range/Units 05:36 AST 12 (5-40) units/L CBC 09/27/16 Range/Units 05:36 WBC 10.6 (4.5-11.0) K/mm3 RBC 4.95 (3.65-5.03) M/mm3 Hgb 14.8 H (10.1-14.3) gm/dl Hct 44.4 H (30.3-42.9) % Plt Count 251 (140-440) K/mm3 Comprehensive Metabolic Panel 09/27/16 Range/Units 05:36 Sodium 133 L (137-145) mmol/L Potassium 4.4 (3.6-5.0) mmol/L Chloride 92.7 L (98-107) mmol/L Carbon Dioxide 25 (22-30) mmol/L BUN 38 H (7-17) mg/dL Creatinine 0.9 (0.7-1.2) mg/dL Glucose 177 H (65-100) mg/dL Calcium 9.0 (8.4-10.2) mg/dL AST 12 (5-40) units/L ALT 13 (7-56) units/L Alkaline Phosphatase 80 (35-129) units/L Total Protein 6.7 (6.3-8.2) g/dL Albumin 3.0 L (3.9-5) g/dL
--- NOTE | 2016-09-27 10:32 | Progress Note ---
Assessment and Plan 76 y/o female with ROSSI, and COPD, and Pulmonary Hypertension, admitted with falls and has some mild lowering of her O2 sat, likely secondary to noncompliance with therapy. 1. Wean FiO2 as tolerated 2. Attempt to achieve net negative state with lasix and then switch back to PO dosing once dried out. 3. Continue pulmicort and brovana 4. Continue CPAP at night, with bleeding in of oxygen as needed to keep sats > 88% 5. Primary and CM working on discharge plan Subjective Date of service: 09/27/16 Principal diagnosis: CAD Interval history: No acute events Objective Vital Signs - 12hr 09/26/16 09/27/16 09/27/16 22:48 00:08 05:00 Temperature 98.0 F 98.4 F Pulse Rate [ 53 L 78 Left] Respiratory 16 18 Rate Blood Pressure 124/66 145/70 [Left Arm] O2 Sat by Pulse 95 96 98 Oximetry 09/27/16 07:58 Temperature 97.7 F Pulse Rate [ 57 L Left] Respiratory 22 Rate Blood Pressure 133/84 [Left Arm] O2 Sat by Pulse 95 Oximetry Constitutional: no acute distress, alert Eyes: non-icteric ENT: oropharynx moist Neck: supple Effort: normal Ascultation: Bilateral: rales (at bases) Percussion: Bilateral: not dull Cardiovascular: regular rate and rhythm Gastrointestinal: normoactive bowel sounds CBC and BMP: 09/27/16 05:36 09/27/16 05:36 ABG, PT/INR, D-dimer: ABG POC ABG pH 7.387 (7.35-7.45) 09/24/16 20:42 POC ABG pCO2 40.3 (35-45) 09/24/16 20:42 POC ABG pO2 53 (80-105) L 09/24/16 20:42 POC ABG HCO3 24.2 09/24/16 20:42 POC ABG Total CO2 25 09/24/16 20:42 POC ABG O2 Sat 87 09/24/16 20:42 PT/INR, D-dimer PT 16.0 Sec. (12.2-14.9) H 09/24/16 16:52 INR 1.29 (0.87-1.13) H 09/24/16 16:52 Abnormal lab findings: Abnormal Labs 09/25/16 09/25/1617 16:00 21:36 06:12 RBC Hgb Hct Lymph % (Auto) Lymph # Seg Neutrophils % Lymphocytes % (Manual) Lymphocytes # (Manual) Sodium Chloride BUN Glucose POC Glucose 208 H 308 H 195 H Albumin 09/26/16 09/26/16 09/26/16 06:16 06:16 10:56 RBC 5.04 H Hgb 15.2 H Hct 45.8 H Lymph % (Auto) 7.5 L Lymph # 0.6 L Seg Neutrophils % 89.3 H Lymphocytes % (Manual) Lymphocytes # (Manual) Sodium 134 L Chloride 92.1 L BUN 33 H Glucose 248 H POC Glucose 330 H Albumin 09/26/16 09/27/16 09/27/16 22:11 05:36 05:36 RBC Hgb 14.8 H Hct 44.4 H Lymph % (Auto) Lymph # Seg Neutrophils % Lymphocytes % (Manual) 6.0 L Lymphocytes # (Manual) 0.6 L Sodium 133 L Chloride 92.7 L BUN 38 H Glucose 177 H POC Glucose 199 H Albumin 3.0 L 09/27/16 06:25 RBC Hgb Hct Lymph % (Auto) Lymph # Seg Neutrophils % Lymphocytes % (Manual) Lymphocytes # (Manual) Sodium Chloride BUN Glucose POC Glucose 169 H Albumin
[2016-09-27] MEDS: CLARITIN PO SCH (10:58)
[2016-09-27] MEDS: LOVENOX SUB-Q SCH (10:58)
[2016-09-27] MEDS: COZAAR PO SCH (10:58)
[2016-09-27] MEDS: TOPROL XL PO SCH (10:59)
[2016-09-27] MEDS: PROzac PO SCH (10:59)
[2016-09-27] MEDS: PLAVIX PO SCH (11:00)
[2016-09-27] MEDS: HALFPRIN EC PO SCH (11:00)
[2016-09-27] MEDS: DETROL LA PO SCH (11:00)
[2016-09-27] MEDS: LASIX IV SCH (11:02)
[2016-09-27] MEDS ORDERED: NON-FORMULARY (Rosuvastatin (Nf) 5 MG) PO SCH (12:45)
--- NOTE | 2016-09-27 12:53 | Progress Note ---
Assessment and Plan - Patient Problems (1) COPD exacerbation Current Visit: Yes Status: Acute Plan to address problem: ont neb tx solumedrol and levaquin Will check ABG Stop solumedrol Start prednisone 20 mg po qd (2) Acute hypoxemic respiratory failure Current Visit: Yes Status: Acute Plan to address problem: Resolved (3) Debility Current Visit: Yes Status: Acute Plan to address problem: PT/OT (4) Foot fracture, right Current Visit: Yes Status: Acute Qualifiers: Encounter type: initial encounter Fracture type: F Fracture healing: F Plan to address problem: Conservative tx PT/OT (5) CHF (congestive heart failure) Current Visit: Yes Status: Chronic Qualifiers: Congestive heart failure type: combined Congestive heart failure chronicity : C Plan to address problem: on lasix (6) HTN (hypertension) Current Visit: Yes Status: Chronic Qualifiers: Hypertension type: essential hypertension Qualified Code(s): I10 - Essential (primary) hypertension Plan to address problem: olmesartan (7) HLD (hyperlipidemia) Current Visit: Yes Status: Chronic Qualifiers: Hyperlipidemia type: mixed hyperlipidemia Qualified Code(s): E78.2 - Mixed hyperlipidemia Plan to address problem: cont statins (8) CAD (coronary artery disease) Current Visit: Yes Status: Chronic Qualifiers: Coronary Disease-Associated Artery/Lesion type: [place] artery [place] vs. transplanted heart: N Associated angina: without angina Plan to address problem: on plavix (9) DVT prophylaxis Current Visit: Yes Status: Acute Plan to address problem: on lovenox Subjective Date of service: 09/27/16 Principal diagnosis: CAD Interval history: Symptomatically better. Objective - Exam Narrative Exam: WD WN female comfortable - Constitutional Vitals: Vital Signs - 12hr 09/27/16 09/27/16 09/27/16 05:00 07:58 10:00 Temperature 98.4 F 97.7 F Pulse Rate [ 78 57 L Left] Respiratory 18 22 Rate Blood Pressure Blood Pressure 145/70 133/84 [Left Arm] O2 Sat by Pulse 98 95 96 Oximetry 09/27/16 09/27/16 10:58 10:59 Temperature Pulse Rate [ Left] Respiratory Rate Blood Pressure 133/84 133/84 Blood Pressure [Left Arm] O2 Sat by Pulse Oximetry General appearance: Present: no acute distress, well-nourished - EENT Eyes: PERRL, EOM intact ENT: hearing intact, clear oral mucosa Ears: bilateral: normal - Neck Neck: supple, normal ROM - Respiratory Respiratory effort: normal Respiratory: bilateral: CTA - Breasts Breasts: normal - Cardiovascular Rhythm: regular Heart Sounds: Present: S1 & S2. Absent: gallop, rub Extremities: pulses intact, No edema, normal color, Full ROM - Gastrointestinal General gastrointestinal: Present: soft, non-tender, non-distended, normal bowel sounds - Genitourinary Female genitourinary: normal - Integumentary Integumentary: clear, warm, dry - Musculoskeletal Musculoskeletal: 1, strength equal bilaterally - Neurologic Neurologic: moves all extremities - Psychiatric Psychiatric: memory intact, appropriate mood/affect, intact judgment & insight - Labs CBC & Chem 7: 09/27/16 05:36 09/27/16 05:36 Labs: Abnormal lab results 09/26/16 09/27/16 09/27/16 Range/Units 22:11 05:36 05:36 Hgb 14.8 H (10.1-14.3) gm/dl Hct 44.4 H (30.3-42.9) % Lymphocytes % (Manual) 6.0 L (13.4-35.0) % Lymphocytes # (Manual) 0.6 L (1.2-5.4) K/mm3 Sodium 133 L (137-145) mmol/L Chloride 92.7 L (98-107) mmol/L BUN 38 H (7-17) mg/dL Glucose 177 H (65-100) mg/dL POC Glucose 199 H (70-105) Albumin 3.0 L (3.9-5) g/dL 09/27/16 09/27/16 Range/Units 06:25 12:37 Hgb (10.1-14.3) gm/dl Hct (30.3-42.9) % Lymphocytes % (Manual) (13.4-35.0) % Lymphocytes # (Manual) (1.2-5.4) K/mm3 Sodium (137-145) mmol/L Chloride (98-107) mmol/L BUN (7-17) mg/dL Glucose (65-100) mg/dL POC Glucose 169 H 219 H (70-105) Albumin (3.9-5) g/dL
[2016-09-27] MEDS ORDERED: DETROL LA PO SCH (13:00)
[2016-09-27] MEDS ORDERED: LASIX PO SCH (13:00)
[2016-09-27] MEDS ORDERED: HALFPRIN EC PO SCH (13:00)
[2016-09-27] MEDS ORDERED: PROzac PO SCH (13:00)
[2016-09-27] MEDS ORDERED: ROBAXIN PO SCH (14:00)
[2016-09-27] MEDS: DELTASONE PO SCH (15:17)
[2016-09-27] MEDS: BROVANA NEBU IH SCH (19:30)
[2016-09-27] MEDS: PULMICORT IH SCH (19:30)
[2016-09-27] MEDS: ZOFRAN IV PRN (20:28)
[2016-09-27] MEDS: MILK OF MAGNESIA PO PRN (20:28)
[2016-09-28] MEDS: ZOFRAN IV PRN (05:57)
[2016-09-28] MEDS ORDERED: REGLAN IV ONE (07:41)
[2016-09-28] MEDS: PULMICORT IH SCH ×2 (07:42→20:29)
[2016-09-28] MEDS: BROVANA NEBU IH SCH ×2 (07:42→20:29)
--- NOTE | 2016-09-28 09:18 | XRay Report ---
KUB: 09/28/16 07:40:00 CLINICAL: Nausea and vomiting. FINDINGS: The colon and rectum are filled with stool. Several loops of moderately dilated small bowel. No pneumoperitoneum. Benign soft tissue calcifications in the right buttock. Arthritis of the right hip. Degenerative changes in the lower lumbar spine. IMPRESSION: Negative abdomen with abundant stool.
[2016-09-28] MEDS ORDERED: OLMESARTAN PO SCH (10:00)
[2016-09-28] MEDS ORDERED: HYDROCHLOROTHIAZIDE PO SCH (10:00)
[2016-09-28] MEDS ORDERED: COZAAR PO SCH (10:00)
[2016-09-28] MEDS ORDERED: HCTZ PO SCH (10:00)
[2016-09-28] MEDS ORDERED: TOPROL XL PO SCH (10:00)
[2016-09-28] MEDS: HALFPRIN EC PO SCH (10:02)
[2016-09-28] MEDS: COZAAR PO SCH (10:02)
[2016-09-28] MEDS: PLAVIX PO SCH (10:03)
[2016-09-28] MEDS: DELTASONE PO SCH (10:03)
[2016-09-28] MEDS: DETROL LA PO SCH (10:04)
[2016-09-28] MEDS: LOVENOX SUB-Q SCH (10:04)
[2016-09-28] MEDS: PROzac PO SCH (10:04)
[2016-09-28] MEDS: LASIX IV SCH (10:04)
[2016-09-28] MEDS: TOPROL XL PO SCH (10:06)
[2016-09-28] MEDS: CLARITIN PO SCH (10:16)
[2016-09-28] MEDS: MILK OF MAGNESIA PO PRN (10:16)
[2016-09-28] MEDS ORDERED: CEPHULAC PO ONE (11:13)
--- NOTE | 2016-09-28 11:19 | Progress Note ---
Assessment and Plan 1. Chronic atrial fibrillation 2. Three-vessel coronary artery disease. Left ventricular ejection fraction 50 -55%. Normal Lexiscan MPI May 2016 3. Essential hypertension 4. Type 2 diabetes mellitus 5. Obesity unspecified 6. Obstructive sleep apnea 7. Non-displaced Metatarsal fractures Plan. Cardiac-cazares stable continue present management Subjective Date of service: 09/28/16 Principal diagnosis: CAD Interval history: Patient denies any cardiac symptoms. Objective Vital Signs Temp Pulse Pulse Resp Resp BP BP 09/28/16 10:06 142/78 09/28/16 10:02 142/78 09/28/16 08:05 97.2 F L 58 L 84 20 18 142/78 09/28/16 07:42 64 22 09/28/16 04:00 98.4 F 61 20 133/86 09/28/16 00:37 16 09/28/16 00:00 98.2 F 66 22 134/67 09/27/16 23:22 68 18 09/27/16 20:00 98.1 F 68 20 163/90 09/27/16 19:40 69 18 09/27/16 19:30 74 18 09/27/16 16:00 97.9 F 69 20 142/74 09/27/16 12:00 98.8 F 54 L 20 137/74 Pulse Ox 09/28/16 10:06 09/28/16 10:02 09/28/16 08:05 95 09/28/16 07:42 95 09/28/16 04:00 95 09/28/16 00:37 09/28/16 00:00 94 09/27/16 23:22 09/27/16 20:00 100 09/27/16 19:40 09/27/16 19:30 94 09/27/16 16:00 95 09/27/16 12:00 94 - Physical Examination General: Appears Well, No Apparent Distress HEENT: Positive: PERRL, Normocephaly Neck: Positive: trachea midline. Negative: JVD/HJR Cardiac: Positive: Regular Rate, S1/S2, Dilated, Laterally Displaced Lungs: Positive: clear to auscultation, No Wheeze, Rales, Rhonchi Neuro: Positive: Grossly Intact Abdomen: Positive: Soft Skin: Positive: Clear Extremities: Absent: edema
[2016-09-28] MEDS ORDERED: ZOFRAN IV PRN (12:31)
[2016-09-28] MEDS: PERCOCET 5/325 PO PRN (13:08)
--- NOTE | 2016-09-28 14:09 | Progress Note ---
Assessment and Plan 76 y/o female with ROSSI, and COPD, and Pulmonary Hypertension, admitted with falls and has some mild lowering of her O2 sat, likely secondary to noncompliance with therapy. 1. Wean FiO2 as tolerated, now down to baseline flow 2. Attempt to achieve net negative state with lasix and then switch back to PO dosing once dried out. 3. Continue pulmicort and brovana 4. Continue CPAP at night, with bleeding in of oxygen as needed to keep sats > 88% 5. Primary and CM working on discharge plan 6. Pulm status is stable from our standpoint. No objection to discharge once plan in place. Will see as needed. Subjective Date of service: 09/28/16 Principal diagnosis: CAD Interval history: patient back to baseline flow of oxygen. Objective Vital Signs - 12hr 09/28/16 09/28/16 09/28/16 04:00 07:42 08:05 Temperature 98.4 F 97.2 F L Pulse Rate [ 64 58 L Anterior Bilateral Throughout] Pulse Rate [ 61 84 Left] Respiratory 20 20 Rate Respiratory 22 18 Rate [Anterior Bilateral Throughout] Blood Pressure Blood Pressure 133/86 142/78 [Left Arm] O2 Sat by Pulse 95 95 95 Oximetry 09/28/16 09/28/16 10:02 10:06 Temperature Pulse Rate [ Anterior Bilateral Throughout] Pulse Rate [ Left] Respiratory Rate Respiratory Rate [Anterior Bilateral Throughout] Blood Pressure 142/78 142/78 Blood Pressure [Left Arm] O2 Sat by Pulse Oximetry Constitutional: no acute distress, alert Eyes: non-icteric ENT: oropharynx moist Neck: supple Effort: normal Ascultation: Bilateral: rales (at bases) Percussion: Bilateral: not dull Cardiovascular: regular rate and rhythm Gastrointestinal: normoactive bowel sounds CBC and BMP: 09/27/16 05:36 09/27/16 05:36 ABG, PT/INR, D-dimer: ABG POC ABG pH 7.387 (7.35-7.45) 09/24/16 20:42 POC ABG pCO2 40.3 (35-45) 09/24/16 20:42 POC ABG pO2 53 (80-105) L 09/24/16 20:42 POC ABG HCO3 24.2 09/24/16 20:42 POC ABG Total CO2 25 09/24/16 20:42 POC ABG O2 Sat 87 09/24/16 20:42 PT/INR, D-dimer PT 16.0 Sec. (12.2-14.9) H 09/24/16 16:52 INR 1.29 (0.87-1.13) H 09/24/16 16:52 Abnormal lab findings: Abnormal Labs 09/25/16 09/25/16 09/26/16 16:00 21:36 06:12 RBC Hgb Hct Lymph % (Auto) Lymph # Seg Neutrophils % Lymphocytes % (Manual) Lymphocytes # (Manual) Sodium Chloride BUN Glucose POC Glucose 208 H 308 H 195 H Albumin 09/26/16 09/26/16 09/26/16 06:16 06:16 10:56 RBC 5.04 H Hgb 15.2 H Hct 45.8 H Lymph % (Auto) 7.5 L Lymph # 0.6 L Seg Neutrophils % 89.3 H Lymphocytes % (Manual) Lymphocytes # (Manual) Sodium 134 L Chloride 92.1 L BUN 33 H Glucose 248 H POC Glucose 330 H Albumin 09/26/16 09/27/16 09/27/16 22:11 05:36 05:36 RBC Hgb 14.8 H Hct 44.4 H Lymph % (Auto) Lymph # Seg Neutrophils % Lymphocytes % (Manual) 6.0 L Lymphocytes # (Manual) 0.6 L Sodium 133 L Chloride 92.7 L BUN 38 H Glucose 177 H POC Glucose 199 H Albumin 3.0 L 09/27/16 09/27/16 09/27/16 06:25 12:37 16:22 RBC Hgb Hct Lymph % (Auto) Lymph # Seg Neutrophils % Lymphocytes % (Manual) Lymphocytes # (Manual) Sodium Chloride BUN Glucose POC Glucose 169 H 219 H 189 H Albumin 09/27/16 09/28/16 09/28/16 21:40 05:41 11:10 RBC Hgb Hct Lymph % (Auto) Lymph # Seg Neutrophils % Lymphocytes % (Manual) Lymphocytes # (Manual) Sodium Chloride BUN Glucose POC Glucose 170 H 135 H 118 H Albumin
--- NOTE | 2016-09-28 15:34 | Progress Note ---
Assessment and Plan - Patient Problems (1) COPD exacerbation Current Visit: Yes Status: Acute Plan to address problem: ont neb tx solumedrol and levaquin Will check ABG Stop solumedrol Start prednisone 20 mg po qd (2) Acute hypoxemic respiratory failure Current Visit: Yes Status: Acute Plan to address problem: Resolved (3) Debility Current Visit: Yes Status: Acute Plan to address problem: PT/OT (4) Foot fracture, right Current Visit: Yes Status: Acute Qualifiers: Encounter type: initial encounter Fracture type: F Fracture healing: F Plan to address problem: 4th aand 5th proximal metatarsal right fx-Conservative tx+Ortho consult PT/OT (5) CHF (congestive heart failure) Current Visit: Yes Status: Chronic Qualifiers: Congestive heart failure type: combined Congestive heart failure chronicity : C Plan to address problem: on lasix (6) HTN (hypertension) Current Visit: Yes Status: Chronic Qualifiers: Hypertension type: essential hypertension Qualified Code(s): I10 - Essential (primary) hypertension Plan to address problem: olmesartan (7) HLD (hyperlipidemia) Current Visit: Yes Status: Chronic Qualifiers: Hyperlipidemia type: mixed hyperlipidemia Qualified Code(s): E78.2 - Mixed hyperlipidemia Plan to address problem: cont statins (8) CAD (coronary artery disease) Current Visit: Yes Status: Chronic Qualifiers: Coronary Disease-Associated Artery/Lesion type: [place] artery [place] vs. transplanted heart: N Associated angina: without angina Plan to address problem: on plavix (9) DVT prophylaxis Current Visit: Yes Status: Acute Plan to address problem: on lovenox (10) Discharge planning issues Current Visit: Yes Status: Acute Plan to address problem: Needs placement Subjective Date of service: 09/28/16 Principal diagnosis: CAD Interval history: Symptomatically better. Objective - Exam Narrative Exam: WD WN female comfortable - Constitutional Vitals: Vital Signs - 12hr 09/28/16 09/28/16 09/28/16 04:00 07:42 08:05 Temperature 98.4 F 97.2 F L Pulse Rate [ 64 58 L Anterior Bilateral Throughout] Pulse Rate [ 61 84 Left] Respiratory 20 20 Rate Respiratory 22 18 Rate [Anterior Bilateral Throughout] Blood Pressure Blood Pressure 133/86 142/78 [Left Arm] O2 Sat by Pulse 95 95 95 Oximetry 09/28/16 09/28/16 10:02 10:06 Temperature Pulse Rate [ Anterior Bilateral Throughout] Pulse Rate [ Left] Respiratory Rate Respiratory Rate [Anterior Bilateral Throughout] Blood Pressure 142/78 142/78 Blood Pressure [Left Arm] O2 Sat by Pulse Oximetry General appearance: Present: no acute distress, well-nourished - EENT Eyes: PERRL, EOM intact ENT: hearing intact, clear oral mucosa Ears: bilateral: normal - Neck Neck: supple, normal ROM - Respiratory Respiratory effort: normal Respiratory: bilateral: CTA - Breasts Breasts: normal - Cardiovascular Rhythm: regular Heart Sounds: Present: S1 & S2. Absent: gallop, rub Extremities: pulses intact, No edema, normal color, Full ROM - Gastrointestinal General gastrointestinal: Present: soft, non-tender, non-distended, normal bowel sounds - Genitourinary Female genitourinary: normal - Integumentary Integumentary: clear, warm, dry - Musculoskeletal Musculoskeletal: 1, strength equal bilaterally - Neurologic Neurologic: moves all extremities - Psychiatric Psychiatric: memory intact, appropriate mood/affect, intact judgment & insight - Labs CBC & Chem 7: 09/27/16 05:36 09/27/16 05:36 Labs: Abnormal lab results 09/27/16 09/27/16 09/28/16 Range/Units 16:22 21:40 05:41 POC Glucose 189 H 170 H 135 H (70-105) 09/28/16 Range/Units 11:10 POC Glucose 118 H (70-105)
[2016-09-28] MEDS: TYLENOL PO PRN (21:45)
[2016-09-29] MEDS: TYLENOL PO PRN (08:00)
[2016-09-29] MEDS: PULMICORT IH SCH (09:15)
[2016-09-29] MEDS: BROVANA NEBU IH SCH (09:15)
--- NOTE | 2016-09-29 09:29 | Discharge Summary ---
Providers - Providers Date of Admission: 09/25/16 08:05 Date of discharge: 09/29/16 Attending physician: BRIDGETTE COKER 09/25/16 08:11 Occupational Therapy Evaluate and Treat [CONS] Routine Comment: Reason For Exam: eval Physical Therapy Evaluation and Treat [CONS] Routine Comment: Reason For Exam: ambulation 09/26/16 18:35 Consult to Case Management [CONS] Routine Services Needed at Discharge: Flight Communications Officer Notified:: cw Comment:: SNF placement 09/28/16 15:36 Consult to Physician [CONS] Routine Consulting Provider: AURELIO WALLIS Reason For Exam: Fx Rt Foot Place consult to:: DR. SANTAMARIA Notified:: ANSWERING SERVICES Phone number called:: [phone] Was contact made?: Yes If yes, spoke with:: KRISHAN Time called:: 16:22 Comment:: ANA NOTIFIED Primary care physician: REGISTERED MEDICAL TRANSCRIPTIONIST Hospitalization Reason for admission: shortness of breath, pain on the right foot Condition: Stable Pertinent studies: Initial results showed fractured of the foot and fifth right metatarsal bones, chest x-ray shows evidence of cardiomegaly, Echocardiogram done on 09/25/2016 showed evidence of mild systolic dysfunction with ejection fraction of 50-55% Procedures: None Hospital course: Patient is 76-year-old lady who was a history or for COPD, hypertension, CHF, diabetes mellitus on insulin pump presented to the emergency department on 09/24/16 complaining of shortness of breath and pain on the right foot. Patient had a history of fall prior to admission. X-ray of the right foot was remarkable for fracture of the proximal aspect of the right third and fourth metatarsals. On admission patient was commenced on diuresis, acei, beta blockers and bronchodilators for her history of COPD. Echocardiogram done on showed ejection fraction of 50-55% with mild systolic dysfunction. Shortness of breath improved with bronchodilators and IV Solu-Medrol. Patient has a history of diabetes mellitus on insulin pump. Glycemic control was obtained. IV Solu-Medrol was tapered and converted to by mouth prednisone. Patient is right foot improved. Conservative management had been advised by orthopedic surgeon. She's therefore been discharged today to the residential facility and to follow primary care physician, policy checker, and orthopedic surgeon in 5, 7 and 10 days respectively. Condition on discharge was satisfactory. I spoke with the daughter who was in the room at times evaluation. Answered all questions to their satisfaction. Disposition: DC/TX SNF W [facility] CERT Core Measure Documentation - Palliative Care Palliative Care/ Comfort Measures: Not Applicable - Core Measures Any of the following diagnoses?: heart failure - Heart Failure Discharge Requirements TRINH/ARB for LVSD if EF <40%: Not Applicable Exam - Constitutional Vitals: Temp Pulse Resp BP Pulse Ox 97.5 F L 82 18 110/58 96 09/28/16 16:04 09/28/16 20:53 09/28/16 22:00 09/28/16 16:04 09/28/16 22:00 General appearance: Present: no acute distress, well-nourished - EENT Eyes: Present: PERRL ENT: hearing intact, clear oral mucosa - Neck Neck: Present: supple, normal ROM - Respiratory Respiratory effort: normal Respiratory: bilateral: CTA - Cardiovascular Heart Sounds: Present: S1 & S2. Absent: rub, click - Extremities Extremities: pulses symmetrical, No edema Extremity abnormal: other (tender over the right third and fourth metatarsals) Peripheral Pulses: within normal limits - Abdominal General gastrointestinal: Present: soft, non-tender, non-distended, normal bowel sounds Female genitourinary: Present: normal - Integumentary Integumentary: Present: clear, warm, dry - Musculoskeletal Musculoskeletal: generalized weakness - Psychiatric Psychiatric: appropriate mood/affect, intact judgment & insight - Neurologic Neurologic: CNII-XII intact, moves all extremities Plan Activity: advance as tolerated, fall precautions Weight Bearing Status: Non-Weight Bearing Diet: diabetic Follow up with: PRIMARY CARE, [Primary Care Provider] - 3-5 Days Prescriptions: oxyCODONE /ACETAMINOPHEN [Percocet 5/325 mg] 1 tab PO Q4H PRN #30 tablet PRN Reason: Pain, Moderate (4-6)
[2016-09-29] MEDS: PROzac PO SCH (10:23)
[2016-09-29] MEDS: DETROL LA PO SCH (10:23)
[2016-09-29] MEDS: HALFPRIN EC PO SCH (10:23)
[2016-09-29] MEDS: COZAAR PO SCH (10:24)
[2016-09-29] MEDS: TOPROL XL PO SCH (10:24)
[2016-09-29] MEDS: DELTASONE PO SCH (10:25)
[2016-09-29] MEDS: CLARITIN PO SCH (10:25)
[2016-09-29] MEDS: LASIX IV SCH (10:26)
[2016-09-29] MEDS: PLAVIX PO SCH (10:26)
[2016-09-29] MEDS: LOVENOX SUB-Q SCH (10:26)
--- NOTE | 2016-09-29 10:49 | Progress Note ---
Assessment and Plan Nondisplaced fractures of the third and fourth metatarsals Shortness of breath, chronic Sleep apnea Chronic Afib on plavix therapy. Previously considered a poor candidate for oral anticoagulation due to history of falls. Hx of CAD s/p 3 vessel CABG normal perfusion MPI 05/2016 EF 50-55% on echo this admission Hypertension Diabetes Conservative cardiac management. Subjective Date of service: 09/29/16 Principal diagnosis: CAD Interval history: Patient resting in bed comfortably. No cardiac events overnight. Objective Vital Signs Temp Pulse Pulse Resp Resp Resp BP 09/29/16 10:25 18 09/29/16 10:24 112/78 09/29/16 09:32 09/29/16 09:15 67 20 09/29/16 08:10 97.6 F 60 18 09/28/16 22:00 20 18 09/28/16 21:45 22 09/28/16 20:53 82 20 09/28/16 20:33 80 18 09/28/16 16:04 97.5 F L 63 20 BP Pulse Ox 09/29/16 10:25 09/29/16 10:24 09/29/16 09:32 95 09/29/16 09:15 09/29/16 08:10 107/76 96 09/28/16 22:00 96 09/28/16 21:45 09/28/16 20:53 09/28/16 20:33 09/28/16 16:04 110/58 96 - Physical Examination General: No Apparent Distress HEENT: Positive: PERRL Neck: Positive: trachea midline Cardiac: Positive: irregularly irregular
--- NOTE | 2016-09-29 16:32 | Consultation ---
History of Present Illness - HPI Consult date: 09/29/16 Consult reason: fracture History of present illness: 76-year-old female with a history of fall about 9 days ago at home patient began complaining of pain in the right foot Past History Past Medical History: atrial fib, CAD, diabetes, hypertension, other (Sleep apnea) Past Surgical History: CABG Social history: no significant social history Family history: no significant family history Medications and Allergies Allergies Allergy/AdvReac Type Severity Reaction Status Date / Time amoxicillin trihydrate Allergy Unknown Verified 09/24/16 15:42 [From Augmentin] meperidine HCl [From Demerol] Allergy Unknown Verified 09/24/16 15:42 potassium clavulanate Allergy Unknown Verified 09/24/16 15:42 [From Augmentin] Sulfa (Sulfonamide Allergy Unknown Verified 09/24/16 15:42 Antibiotics) Home Medications Medication Instructions Recorded Confirmed Last Taken Type Clopidogrel Bisulfate [Plavix] 75 mg PO DAILY 09/24/16 09/24/16 Unknown History Aspirin [Adult Low Dose Aspirin EC] 81 mg PO 09/26/16 Unknown History Celecoxib [celeBREX] 200 mg PO 09/26/16 Unknown History FLUoxetine [PROzac] 20 mg PO DAILY 09/26/16 09/26/16 Unknown History Fluticasone/Vilanterol [Breo 09/26/16 Unknown History Ellipta 100-25 Mcg INH] Furosemide [Lasix TAB] 20 mg PO BID 09/26/16 09/26/16 Unknown History Metoprolol Xl [Metoprolol 100 mg PO QDAY 09/26/16 09/26/16 Unknown History SUCCINATE ER TAB] Olmesartan/Hydrochlorothiazide 1 tab PO QDAY 09/26/16 09/26/16 Unknown History [Benicar HCT 40-12.5 mg] Rosuvastatin (Nf) [Crestor] 5 mg PO 09/26/16 Unknown History Tolterodine [Detrol LA] 4 mg PO QDAY 09/26/16 09/26/16 Unknown History methOCARBAMOL [Robaxin TAB] 500 mg PO QID 09/26/16 09/26/16 Unknown History Arformoterol Nebu [Brovana Nebu] 15 mcg IH Q12HRT #30 ml 09/29/16 Unknown Rx Aspirin EC [Aspirin Enteric Coated 81 mg PO QDAY tablet 09/29/16 Unknown Rx TAB] AtorvaSTATin [Lipitor] 10 mg PO QHS tablet 09/29/16 Unknown Rx Bisacodyl [Dulcolax suppos] 10 mg MS QDAY PRN #30 supp.rect 09/29/16 Unknown Rx Budesonide [Pulmicort Respules] 0.5 mg IH Q12HRT nebu 09/29/16 Unknown Rx Enoxaparin [Lovenox] 40 mg SUB-Q QDAY syringe 09/29/16 Unknown Rx Insulin Regular, Human [HumuLIN R] 0 units SUB-Q ACHS units 09/29/16 Unknown Rx Tolterodine [Detrol LA] 4 mg PO QDAY capsule 09/29/16 Unknown Rx oxyCODONE /ACETAMINOPHEN [Percocet 1 tab PO Q4H PRN #30 tablet 09/29/16 Unknown Rx 5/325 mg] predniSONE [Deltasone] 20 mg PO QDAY tablet 09/29/16 Unknown Rx Active Meds: Active Medications Acetaminophen (Tylenol) 650 mg PO Q4H PRN PRN Reason: Pain MILD(1-3)/Fever >100.5/CASTILLO Last Admin: 09/29/16 08:00 Dose: 650 mg Arformoterol Tartrate (Brovana Nebu) 15 mcg IH Q12HRT [facility] Last Admin: 09/29/16 09:15 Dose: 15 mcg Aspirin (Halfprin Ec) 81 mg PO QDAY [facility] Last Admin: 09/29/16 10:23 Dose: 81 mg Atorvastatin Calcium (Lipitor) 10 mg PO QHS [facility] Last Admin: 09/28/16 21:45 Dose: 10 mg Bisacodyl (Dulcolax) 10 mg MS QDAY PRN PRN Reason: Constipation unrelieved by MOM Last Admin: 09/28/16 10:16 Dose: 10 mg Budesonide (Pulmicort) 0.5 mg IH Q12HRT [facility] Last Admin: 09/29/16 09:15 Dose: 0.5 mg Celecoxib (Celebrex) 200 mg PO QDAY [facility] Last Admin: 09/29/16 10:25 Dose: 200 mg Clopidogrel Bisulfate (Plavix) 75 mg PO DAILY [facility] Last Admin: 09/29/16 10:26 Dose: 75 mg Dextrose (D50w (25gm)) 50 ml IV PRN PRN PRN Reason: Hypoglycemia Enoxaparin Sodium (Lovenox) 40 mg SUB-Q QDAY [facility] Last Admin: 09/29/16 10:26 Dose: 40 mg Fluoxetine HCl (Prozac) 20 mg PO QDAY [facility] Last Admin: 09/29/16 10:23 Dose: 20 mg Furosemide (Lasix) 20 mg IV QDAY [facility] Last Admin: 09/29/16 10:26 Dose: 20 mg Insulin Human Regular (Novolin R) 0 units SUB-Q ACHS [facility] PRN Reason: Protocol Last Admin: 09/29/16 13:30 Dose: Not Given Loratadine (Claritin) 10 mg PO QDAY [facility] Last Admin: 09/29/16 10:25 Dose: 10 mg Losartan Potassium (Cozaar) 100 mg PO QDAY [facility] Last Admin: 09/29/16 10:24 Dose: 100 mg Magnesium Hydroxide (Milk Of Magnesia) 30 ml PO Q4H PRN PRN Reason: Constipation Last Admin: 09/28/16 10:16 Dose: 30 ml Methocarbamol (Robaxin) 500 mg PO Q6H PRN PRN Reason: Muscle Spasm Last Admin: 09/27/16 13:49 Dose: 500 mg Metoprolol Succinate (Toprol Xl) 100 mg PO QDAY [facility] Last Admin: 09/29/16 10:24 Dose: 100 mg Ondansetron HCl (Zofran) 4 mg IV Q8H PRN PRN Reason: N/V unrelieved by Jin Last Admin: 09/28/16 05:57 Dose: 4 mg Ondansetron HCl (Zofran) 4 mg IV Q4H PRN PRN Reason: Nausea And Vomiting Last Admin: 09/28/16 13:08 Dose: 4 mg Oxycodone/Acetaminophen (Percocet 5/325) 1 tab PO Q4H PRN PRN Reason: Pain, Moderate (4-6) Last Admin: 09/28/16 13:08 Dose: 1 tab Prednisone (Deltasone) 20 mg PO QDAY [facility] Last Admin: 09/29/16 10:25 Dose: 20 mg Tolterodine Tartrate (Detrol La) 4 mg PO QDAY [facility] Last Admin: 09/29/16 10:23 Dose: 4 mg Physical Examination - Physical exam Narrative exam: Physical examination significant findings released to the right foot. She was noted have multiple discolorations to the dorsum with tenderness over the third and fourth metatarsals there are no obvious deformity skin was intact Plain x-rays taken of the right foot reveal a minimally displaced fractures at the base of the third and fourth metatarsal, as well as a healing fracture noted in the fourth metacarpal shaft with abundant callus formation Assessment and Plan Assessment- fractured right third and fourth metatarsals Plan/recommendation - patient will require CAM walking boot for 4-6 wks, may weight bear as tolerated, follow up in office in 2 wks
[2016-09-29 16:47] VITALS: BP 144/73
== END 2016-09-29 17:45 | DRG 291 ==
LOC: ED 15:38 → 3A 09-25 08:05
PROVIDERS: ADMIT Hospitalist; ATTEND Family Medicine
PROC: 4A033R1 Measurement of Arterial Saturation, Peripheral, Percutaneous Approach (ICD-10-PCS; principal; 2016-09-24)
DX: I11.0 Hypertensive heart disease with heart failure (principal); J96.01 Acute respiratory failure with hypoxia; J44.1 Chronic obstructive pulmonary disease with (acute) exacerbation; Z68.41 Body mass index [BMI] 40.0-44.9, adult; I50.23 Acute on chronic systolic (congestive) heart failure; E11.9 Type 2 diabetes mellitus without complications; S92.334A Nondisplaced fracture of third metatarsal bone, right foot, initial encounter for closed fracture; S92.344A Nondisplaced fracture of fourth metatarsal bone, right foot, initial encounter for closed fracture; I25.10 Atherosclerotic heart disease of native coronary artery without angina pectoris; I48.2 Chronic atrial fibrillation; G47.33 Obstructive sleep apnea (adult) (pediatric); I27.2 Other secondary pulmonary hypertension; E78.2 Mixed hyperlipidemia; E66.9 Obesity, unspecified; Y99.8 Other external cause status; W07.XXXA Fall from chair, initial encounter; Y93.89 Activity, other specified; Y92.89 Other specified places as the place of occurrence of the external cause; Z88.1 Allergy status to other antibiotic agents; Z88.8 Allergy status to other drugs, medicaments and biological substances; Z88.2 Allergy status to sulfonamides; Z95.1 Presence of aortocoronary bypass graft
CPT/HCPCS: 36415; 70450; 71010; 71250; 72125; 72131; 72170; 74000; 80048; 80053; 81001; 82550; 82803; 82962; 83735; 83880; 84484; 85007; 85025; 85610; 85730; 93005; 93010; 93306; 94640; 94760; 96374; A9270-GY; G8978-GP; G8979-GP; G8988-GO; G8989-GO; G8990-GO; J1650; J1815; J1940; J2405; J2765; J2920; J7512